=== PATIENT | female | born 1960 | race Caucasian/White ===

== ENCOUNTER 2017-03-11 22:25 | Inpatient (IN) | payer OTHER ==
[~2017-03-11] VITALS: Ht 167.6 cm; Wt 89.0 kg
[2017-03-11] MEDS ORDERED: MAGNESIUM SULFATE 1GM / D5W 1 GM BAG IV STA (22:37)
[2017-03-11] MEDS ORDERED: METHYLPREDNISOLONE 125 MG VIAL IV STA (22:37)
[2017-03-11] MEDS ORDERED: ALBUT/IPRATROP 3MG/0.5MG NEB 3 ML VIAL INH ONE (22:45)
--- NOTE | 2017-03-11 22:50 | EMERGENCY ROOM VISIT NOTE ---
History Report prepared by Yosef: Redd Medina Under the Supervision of: Dr. Madan Pickens M.D. First contact with patient: 22:28 Chief Complaint: SHORTNESS OF BREATH Stated Complaint: SOB, CHILLS, TREMORS History of Present Illness The patient is a 57 year old female who presents to the Emergency Room with complaints of constant shortness of breath beginning at 2030 today. She also complains of pain with urination but denies any coughing. She has a history of asthma and COPD and was diagnosed with a UTI by her PCP today. Source of History: patient Onset: 2029 Position: chest Quality: other (shortness of breath) Timing: constant Associated Symptoms: + urinary symptoms, No cough Review of Systems See HPI for pertinent positives & negatives. A total of 10 systems reviewed and were otherwise negative. Past Medical & Surgical Medical Problems: (1) Asthma (2) COPD (chronic obstructive pulmonary disease) (3) Sepsis (4) UTI (urinary tract infection) Family History No pertinent family history stated. Social History Marital Status: Occupation Status: disabled Current/Historical Medications Scheduled Albuterol Hfa (Ventolin Hfa), 2-4 PUFFS INH Q6H Albuterol Sulf (Proventil 0.083% 2.5MG/3ML), 2.5 MG INH QID Fluticasone Furoate-Vilanterol (Breo Ellipta 200-25 Mcg/INH), 1 PUFF INH UD Lisinopril (Zestril), 20 MG PO DAILY Metoprolol Succ (Toprol Xl) (Toprol-Xl), 25 MG PO DAILY Nitrofurantoin Monohyd Macrocr (Macrobid), 100 MG PO BID Ranitidine (Zantac), 150 MG PO BID Roflumilast (Daliresp), 1 TAB PO DAILY Sertraline (Zoloft), 100 MG PO DAILY Umeclidinium [place] (Incruse Ellipta), 1 PUFF INH UD Allergies Coded Allergies: Levofloxacin (Unverified Allergy, Severe, HIVES, 03/11/17) Sulfamethoxazole w/Trimethoprim (Unverified Allergy, Severe, HIVES, ) Physical Exam Vital Signs Date Time Temp Pulse Resp B/P (MAP) Pulse Ox O2 Delivery O2 Flow Rate FiO2 03/12/17 01:05 37.6 133 22 127/81 93 Nasal Cannula 4.0 03/12/17 00:53 161 18 132/64 91 Nasal Cannula 4.0 03/11/17 23:51 128 18 141/94 95 Nebulizer 03/11/17 23:07 132 28 93 Nasal Cannula 3.5 03/11/17 23:05 127 03/11/17 22:39 92 Nasal Cannula 4.0 03/11/17 22:38 86 Room Air 03/11/17 22:38 37.3 121 30 181/119 86 Room Air 03/11/17 22:38 86 Room Air Physical Exam GENERAL: Patient is a healthy-appearing well-nourished female, in distress HEAD: Normocephalic atraumatic EYES: Ocular movements intact pupils equal and react to light OROPHARYNX mucous membranes are moist no exudates present no erythema or edema present NECK: Supple no nuchal rigidity CHEST: Good equal expansion LUNGS: Wheezing throughout all lung carranza CARDIAC: Normal S1 and S2 ABDOMEN: Soft nontender no guarding BACK: No CVA tenderness EXTREMITIES: No pain upon palpation normal muscle strength in all groups no clubbing cyanosis or edema NEURO: Patient is following commands and answering questions appropriately. Alert and oriented x3 Cranial Nerves 2-12 grossly intact Medical Decision & Procedures ER Provider Diagnostic Interpretation: Radiology results as stated below per my review and radiologist interpretation: CHEST ONE VIEW PORTABLE FINDINGS: Cardiomediastinal and hilar silhouettes are within normal limits. Interstitial coarsening of the lung bases suggest chronic changes or atelectasis. There is no pneumothorax, pleural effusion, focal airspace consolidation or overt pulmonary edema. Bones of the chest appear grossly intact. IMPRESSION: Interstitial opacities of the lung bases suggest chronic changes or atelectasis. No acute cardiopulmonary process identified. The above report was generated using voice recognition software. It may contain grammatical, syntax or spelling errors. Electronically signed by: Brayan Gasca M.D. 03/11/2017 11:07 PM Laboratory Results Test 03/11/17 22:57 03/11/17 23:00 03/11/17 23:47 Urine Color YELLOW Urine Appearance CLEAR (CLEAR) Urine pH 5.0 (4.5-7.5) Urine Specific [place] 1.013 (1.000-1.030) Urine Protein NEG (NEG) Urine Glucose (UA) NEG (NEG) Urine Ketones NEG (NEG) Urine Occult Blood NEG (NEG) Urine Nitrite NEG (NEG) Urine Bilirubin NEG (NEG) Urine Urobilinogen NEG (NEG) Urine Leukocyte Esterase NEG (NEG) Prothrombin Time 10.0 SECONDS (9.0-12.0) Prothromb Time International Ratio 0.9 (0.9-1.1) Activated Partial Thromboplast Time 26.7 SECONDS (21.0-31.0) Partial Thromboplastin Ratio 1.0 Magnesium Level 1.8 mg/dl (1.8-2.4) Total Bilirubin 0.3 mg/dl (0.2-1) Aspartate Amino Transf (AST/SGOT) 18 U/L (15-37) Alanine Aminotransferase (ALT/SGPT) 35 U/L (12-78) Alkaline Phosphatase 99 U/L (45-117) Total Creatine Kinase 62 U/L (26-192) Creatine Kinase MB 1.3 ng/ml (0.5-3.6) Creatine Kinase MB Ratio 2.1 (0-3.0) Troponin I < 0.015 ng/ml (0-0.045) Total Protein 7.3 gm/dl (6.4-8.2) Albumin 3.6 gm/dl (3.4-5.0) Globulin 3.7 gm/dl (2.5-4.0) Albumin/Globulin Ratio 1.0 (0.9-2) Thyroid Stimulating Hormone (TSH) 0.716 uIu/ml (0.300-4.500) Influenza Type A (RT-PCR) Neg for Influ A (NEG) Influenza Type A Antigen Neg for Influ A (NEG) Influenza Type B Antigen Neg for Influ B (NEG) Influenza Type B (RT-PCR) Neg for Influ B (NEG) Labs reviewed by ED physician. Medications Administered Medications (Trade) Dose Ordered Sig/Pierce Route Start Time Stop Time Status Last Admin Dose Admin Methylprednisolone Sodium Succinate (Solu-Medrol IV) 125 mg NOW STAT IV 03/11/17 22:37 03/11/17 22:39 DC 03/11/17 23:03 125 MG Albuterol/ Ipratropium (Duoneb) 12 ml ONE ONCE INH 03/11/17 22:45 03/11/17 22:46 DC 03/11/17 23:07 12 ML Magnesium Sulfate (Magnesium Sulfate) 1 gm NOW STAT IV 03/11/17 22:37 03/11/17 22:39 DC 03/11/17 23:03 1 GM Piperacillin Sod/ Tazobactam Sod (Zosyn Iv) 4.5 gm NOW STAT IV 03/11/17 23:20 03/11/17 23:22 DC 03/12/17 00:25 4.5 GM Doxycycline Hyclate 100 mg/ Dextrose 110 ml @ 50 mls/hr NOW STAT IV 03/11/17 23:20 03/12/17 01:34 DC 03/12/17 00:50 50 MLS/HR Acetaminophen (Tylenol Tab) 1,000 mg NOW STAT PO 03/12/17 00:28 03/12/17 00:29 DC 03/12/17 00:34 1,000 MG Sodium Chloride 1,000 ml @ 999 mls/hr Q1H1M STAT IV 03/12/17 00:31 03/12/17 01:34 DC 03/12/17 01:04 999 MLS/HR Metoprolol Succinate (Toprol Xl Tab) 25 mg ONE STAT PO 03/12/17 00:53 03/12/17 00:54 DC 03/12/17 01:03 25 MG ECG Indication: SOB/dyspnea Rate (beats per minute): 132 Rhythm: sinus tachycardia Findings: no acute ischemic change, no ectopy ED Course 2229: Past medical records reviewed. The patient was evaluated in room C9. A complete history and physical examination was performed. 2237: Magnesium Sulfate 1gm IV, Solu-Medrol IV 125mg IV 2245: Duoneb 12ml INH 2320: Zosyn IV 4.5gm IV 0028: Acetaminophen 1000mg PO 0006: Upon reexamination the patient is stable. I discussed results and treatment plan with the patient. She verbalizes agreement and understanding. I spoke with Dr. Stern from the [facility]. The patient will be evaluated for further management. Medical Decision Differential diagnosis: Etiologies such as infections, reactive airway disease, pneumonia, pneumothorax , COPD, CHF, cardiac ischemia, pulmonary embolism, musculoskeletal, gastrointestinal, as well as others were entertained. This is a 57-year-old female who presents to the emergency department complaining of hypoxia. The patient has a history of COPD. She has a large elevation in her white blood count cell count. She was started on Solu-Medrol emergency department and started on antibiotics. Because the patient still requiring oxygen I did discuss the case with the hospitalist service who agreed to admit the patient. Patient was in agreement with the treatment plan. Medication Reconcilliation Current Medication List: was personally reviewed by me Blood Pressure Screening Patient's blood pressure: Elevated blood pressure Blood pressure disposition: Referred to PCP Consults Time Called: 2229 Consulting Phys[facility] Returned Call: [phone] I discussed the patient's case with Dr. Stern, he has agreed to evaluate the patient for further management and care. Impression Primary Impression: Hypoxia Additional Impression: COPD exacerbation Scribe Attestation The scribe's documentation has been prepared under my direction and personally reviewed by me in its entirety. I confirm that the note above accurately reflects all work, treatment, procedures, and medical decision making performed by me. Departure Information Dispostion Being Evaluated By Hospitalist Referrals No Doctor, Assigned (PCP) Patient Instructions My [facility] Problem Qualifiers
[2017-03-11] MEDS ORDERED: ALBINS/ INH (23:06)
[2017-03-11] MEDS ORDERED: METO25TA3 PO (23:06)
[2017-03-11] MEDS ORDERED: ZNTT/150 PO (23:06)
[2017-03-11] MEDS ORDERED: SERT-234 PO (23:06)
[2017-03-11] MEDS ORDERED: ROFL1TAB5 PO (23:06)
[2017-03-11] MEDS ORDERED: VNTHFA/IN INH (23:06)
[2017-03-11] MEDS ORDERED: FLUT1INH7 INH (23:06)
[2017-03-11] MEDS ORDERED: LISI-725 PO (23:06)
[2017-03-11] MEDS ORDERED: NITR-5 PO (23:06)
[2017-03-11] MEDS ORDERED: UMEC1INH INH (23:06)
[2017-03-11 23:07] VITALS: PULSE 132; O2SAT 93
--- NOTE | 2017-03-11 23:08 | DIAGNOSTIC IMAGING REPORT ---
CHEST ONE VIEW PORTABLE HISTORY: 57 years-old Female Pt c/o SOB acute shortness of breath COMPARISON: None available TECHNIQUE: Portable upright AP view of the chest FINDINGS: Cardiomediastinal and hilar silhouettes are within normal limits. Interstitial coarsening of the lung bases suggest chronic changes or atelectasis. There is no pneumothorax, pleural effusion, focal airspace consolidation or overt pulmonary edema. Bones of the chest appear grossly intact. IMPRESSION: Interstitial opacities of the lung bases suggest chronic changes or atelectasis. No acute cardiopulmonary process identified. The above report was generated using voice recognition software. It may contain grammatical, syntax or spelling errors. Electronically signed by: Brayan Gasca M.D. 03/11/2017 11:07 PM Dictated Date/Time: 03/11/2017 11:06 PM
[2017-03-11 23:14] LABS: BASO % 0.1 %; BASO ABS # 0.02 K/uL (0-0.2); COMPLETE YES; EOS % 0.7 %; HEMATOCRIT 42.9 % (37-47); IG% 0.4 %; LYMPH % 6.8 %; LYMPH ABS # 1.21 K/uL (1.2-3.4); MEAN CELL VOLUME 88.3 fL (80-100); MEAN CORPUSCULAR HEMOGLOBIN 29.2 pg (25-34); MEAN CORPUSCULAR HGB CONC 33.1 g/dl (32-36); MONO % 6.5 %; NEUT % 85.5 %; PLATELET COUNT 372 K/uL (130-400); RED BLOOD COUNT 4.86 M/uL (4.2-5.4); WHITE BLOOD COUNT 17.81 K/uL (4.8-10.8)
[2017-03-11 23:16] LABS: URINE APPEARANCE CLEAR (CLEAR); URINE BILIRUBIN NEG (NEG); URINE COLOR YELLOW; URINE NITRITE NEG (NEG); URINE SPECIFIC GRAVITY 1.013 (1.000-1.030); UROBILINOGEN NEG (NEG)
[2017-03-11] MEDS ORDERED: DOXYCYCLINE IV 100 MG in DEXTROSE 5% 100ML 100 ML IV STA (23:20)
[2017-03-11] MEDS ORDERED: PIPERACILLIN/TAZOBACTAM 4.5 GM/100ML D5W IV STA (23:20)
[2017-03-11 23:36] LABS: MANUAL MICROSCOPIC REQUIRED? NO; REVIEW REQ? NO
[2017-03-11 23:39] LABS: ALT/SGPT 35 U/L (12-78); BLOOD UREA NITROGEN 16 mg/dl (7-18); BUN/CREATININE RATIO 17.2 (10-20); CARBON DIOXIDE 26 mmol/L (21-32); CHLORIDE 108 mmol/L (98-107); CREATININE 0.93 mg/dl (0.60-1.20); GLUCOSE 131 mg/dl (70-99); POTASSIUM 4.2 mmol/L (3.5-5.1); SODIUM 140 mmol/L (136-145)
[2017-03-11 23:44] LABS: ALKALINE PHOSPHATASE 99 U/L (45-117); AST/SGOT 18 U/L (15-37); CKMB/CK RATIO 2.1 (0-3.0)
[2017-03-12] VITALS (13 sets, daily range): BP systolic 98–130; BP diastolic 63–83; PULSE 79–100; TEMP 36.4–36.8; O2SAT 91–98; Ht 167.6 cm; Wt 89.0 kg
[2017-03-12] MEDS ORDERED: ACETAMINOPHEN 500 MG TAB PO STA (00:28)
[2017-03-12] MEDS ORDERED: SODIUM CHLORIDE 0.9% 1000ML 1,000 ML IV STA (00:31)
[2017-03-12 00:53] LABS: MAGNESIUM 1.8 mg/dl (1.8-2.4); THYROID STIMULATING HORMONE 0.716 uIu/ml (0.300-4.500)
[2017-03-12] MEDS ORDERED: METOPROLOL SUCC 25MG EXT REL TAB PO STA (00:53)
[2017-03-12 01:13] LABS: INFLUENZA A PCR Neg for Influ A (NEG); INFLUENZA B PCR Neg for Influ B (NEG)
[2017-03-12 01:41] LABS: ARTERIAL BLD GAS O2 SATURATION 96.5 % (90-95); ARTERIAL BLOOD GAS BASE EXCESS -3.2 mEq/L (-9-1.8); ARTERIAL BLOOD GAS HCO3 21 mmol/L (19-24); ARTERIAL BLOOD GAS PO2 89 mm/Hg (80-95); ARTERIAL BLOOD GAS pH 7.38 (7.35-7.45)
[2017-03-12 01:49] LABS: ALLEN TEST POS (POS)
[2017-03-12 01:54] LABS: O2 ADMINISTRATION 4 L
[2017-03-12] MEDS ORDERED: NITROGLYCERIN 0.4 MG SL PER TAB CHARGE SL PRN (02:00)
[2017-03-12] MEDS ORDERED: LEVALBUTEROL/IPRATROPIUM NEB INH PRN (02:00)
[2017-03-12] MEDS ORDERED: SODIUM CHLORIDE 0.9% 1000ML 1,000 ML IV ONE ×2 (02:15→02:45)
[2017-03-12] MEDS ORDERED: IPRATROPIUM BROMIDE NEB SOLN 0.02% 2.5 ML VIAL INH PRN (02:30)
[2017-03-12] MEDS ORDERED: LEVALBUTEROL 1.25MG/0.5ML NEB INH PRN (02:30)
[2017-03-12] MEDS ORDERED: LEVALBUTEROL/IPRATROPIUM NEB INH SCH (03:00)
[2017-03-12] MEDS: INSULIN GLARGINE SOLOSTAR 100 UNITS/ML 3 ML PEN SC ONE ×2 (03:38→03:48)
[2017-03-12 03:50] LABS: INR 0.9 (0.9-1.1)
--- NOTE | 2017-03-12 04:29 | Progress Note ---
Progress Note Post Crystalloid Evaluation Date: Mar 12, 2017 Time: 02:00 Subjective Dry cough Some shortness of breath Physical Exam Vital Signs: Vital Signs Date Time Temp Pulse Resp B/P (MAP) Pulse Ox O2 Delivery O2 Flow Rate FiO2 03/12/17 04:00 95 Nasal Cannula 2.0 03/12/17 02:45 36.8 98 18 109/65 Lungs: + decreased breath sounds Heart: + tachycardia Peripheral Pulse: Normal Skin: [place] Assessment & Plan Presence of: Severe Sepsis Severe sepsis secondary to chronic obstructive pulmonary disease exacerbation/complicated bronchitis SIRS plus hypoxemic respiratory failure plus lactic acidosis cultures, IV Doxycycline follow lactic acid, IVF
--- NOTE | 2017-03-12 05:54 | HISTORY & PHYSICAL EXAMINATION ---
DATE OF ADMISSION: 03/12/2017 PRIMARY CARE DOCTOR: Dr. Lira. CHIEF COMPLAINT: Cough, shortness of breath. HISTORY OF PRESENT ILLNESS: History obtained from patient and ER records. Medical history significant for COPD, past tobacco abuse, hypertension, mood disorder. Yesterday, patient noted to have bladder discomfort. Seen at PCP's office. Prescribed Macrodantin for possible UTI. Symptoms improved with a few doses. Patient also noted to have dry cough sx yesterday morning. Px woke up last night with worsening cough, shortness of breath, fever, chills. Patient noted to be in respiratory distress at the Emergency Room. Received Solu-Medrol, nebs, Doxycycline and Zosyn for COPD exacerbation. MEDICAL AND SURGICAL HISTORY: As above. HOME MEDICATIONS: Include albuterol, Ellipta, lisinopril, metoprolol, Macrobid, Daliresp, Zantac, Zoloft. ALLERGIES: BACTRIM, LEVOFLOXACIN. FAMILY HISTORY: Hypertension. PERSONAL AND SOCIAL HISTORY: Past tobacco abuse. No chronic intake of alcoholic beverages. On disability. REVIEW OF SYSTEMS: As per HPI, all other ROS negative. PHYSICAL EXAMINATION: VITAL SIGNS: Blood pressure was noted to be 181/190, later 140/94, pulse rate 121, RR 30, later 18, temperature noted to be 37.6, sats 86% on room air. GENERAL: Noted to be obese, comfortable, no respiratory distress. SKIN: Normal color, warm. HEENT: Pale palpebral conjunctivae. No ptosis. Dry buccal mucosa. NECK: Supple. No tenderness. LUNGS: Decreased breath sounds. No tenderness. CV: Tachycardic. palpable LE pulses . ABDOMEN: Some distention, nontender. EXTREMITIES: No edema, no tenderness. No gross deformities. NEUROLOGIC: Coherent. No gross focality. LABORATORY DATA: Hemoglobin was noted to be 14.2, WBC 16 platelets 372. Sodium 140, potassium 4.2, chloride 108, CO2 26, BUN 16, creatinine 0.9, glucose 131. ABG pH 7.38, pCO2 37, pO2 89 on 4 liters. Chest x-ray showed interstitial opacities, chronic changes versus atelectasis. Lactic acid was noted to be 3.2. Flu swab negative. ASSESSMENT: 1. Severe sepsis secondary to chronic obstructive pulmonary disease exacerbation/complicated bronchitis SIRS plus hypoxemic respiratory failure plus lactic acidosis 2. past tobacco abuse 3. hypertension, slightly elevated. 4. Mood disorder, stable. 5. Hyperglycemia, rule out DM2. PLAN: Supplemental O2 cultures, follow lactic acid IV fluids. Doxycycline, nebs, steroids. Pulmonology consult if no improvement with initial intervention RE respiratory failure Facilitate home BP meds. May need dose titration. Check hemoglobin A1c. DVT prophylaxis, Lovenox subQ. Full code. MTDD
[2017-03-12] MEDS: SODIUM CHLORIDE 0.45% 1000ML 1,000 ML IV SCH ×2 (06:17→07:50)
[2017-03-12 06:43] LABS: BUN/CREATININE RATIO 14.5 (10-20); CALCIUM 8.3 mg/dl (8.5-10.1); CREATININE 1.05 mg/dl (0.60-1.20); POTASSIUM 4.5 mmol/L (3.5-5.1)
[2017-03-12] MEDS: IPRATROPIUM BROMIDE NEB SOLN 0.02% 2.5 ML VIAL INH SCH ×3 (07:25→19:24)
[2017-03-12] MEDS: LEVALBUTEROL 1.25MG/0.5ML NEB INH SCH ×3 (07:25→19:24)
[2017-03-12 07:36] LABS: HEMATOCRIT 38.7 % (37-47); MEAN CORPUSCULAR HEMOGLOBIN 29.2 pg (25-34); MEAN CORPUSCULAR HGB CONC 32.8 g/dl (32-36); MEAN PLATELET VOLUME 9.5 fL (7.4-10.4); PLATELET COUNT 381 K/uL (130-400); RED BLOOD COUNT 4.35 M/uL (4.2-5.4); WHITE BLOOD COUNT 24.51 K/uL (4.8-10.8)
[2017-03-12] MEDS: ENOXAPARIN 40 MG/0.4 ML SYR SC SCH (07:49)
[2017-03-12] MEDS: DOXYCYCLINE HYCLATE 100 MG CAP PO SCH ×2 (07:49→21:07)
[2017-03-12] MEDS: RANITIDINE HCL 150 MG TAB PO SCH ×2 (07:50→21:07)
[2017-03-12] MEDS: LISINOPRIL 20 MG TAB PO SCH (07:50)
[2017-03-12] MEDS: ROFLUMILAST 500 MCG TAB PO SCH (07:50)
[2017-03-12] MEDS: SERTRALINE HCL 100 MG TAB PO SCH (07:50)
[2017-03-12 08:06] LABS: BASO % 0.1 %; BASO ABS # 0.03 K/uL (0-0.2); COMPLETE YES; IG% 0.6 %; LYMPH % 2.8 %; LYMPH ABS # 0.69 K/uL (1.2-3.4); MONO % 1.6 %; NEUT % 94.9 %
--- NOTE | 2017-03-12 10:12 | Progress Note ---
Internal Med Progress Note Date of Service: Mar 12, 2017. Provider Documentation: SUBJECTIVE: Seen and examined at bedside States having dry cough Denies chest pain, SOB, dizziness, nausea, abd pain, diarrhea Feels better No other complaints OBJECTIVE: Vital Signs-as noted below Physical Exam: General Appearance:Moderately built and nourished, no apparent distress Head: normocephalic, Atraumatic Eyes: normal inspection, EOMI, PERRL Neck: supple, Trachea midline Respiratory/Chest: decreased breath sounds, CTA Cardiovascular: S1, S2, No murmur Abdomen/GI:Soft, Non tender, Bowel sounds present Extremities/Musculoskelatal:normal inspection, no edema Neurologic/Psych:AAOX3, grossly no focal neurological deficits Skin: normal color, warm Lab data as noted below. ASSESSMENT & PLAN: Severe sepsis: Acute on Chronic respiratory failure with Hypoxia COPD exacerbation/Complicated bronchitis CXR: No signs of consolidation UA: normal (Already took Macrobid for UTI like symptoms prior to admission) Blood cultures pending Oxygen support to maintain Sats 88-92% Continue Abx:Ceftriaxone, Doxy Duonebs, home inhalers Continue prednisone IV fluids Monitor lactate levels Needs sleep study as outpatient for possible underlying sleep apnea Influenza Negative Will consider Pulmonary consult if clinically deteriorates Currently feels better H/O Palpitations Tachy arrhythmia on monitor currently in sinus, asymptomatic Will consult Cardiology for Further management Continue Metoprolol Hypertension: On lisinopril, Metoprolol Monitor Mood disorder: stable Continue home meds Hyperglycemia: Check A1C DVT px: Lovenox subQ. Code Status: Full code Disposition: Monitor in tele Vital Signs: Date Time Temp Pulse Resp B/P (MAP) Pulse Ox O2 Delivery O2 Flow Rate FiO2 03/12/17 07:39 36.8 89 19 98/63 (75) 97 Room Air 4.0 03/12/17 07:25 92 18 98 Nasal Cannula 5.0 03/12/17 04:34 36.5 79 19 109/67 (81) 95 Nasal Cannula 4.0 03/12/17 04:00 95 Nasal Cannula 2.0 03/12/17 02:45 36.8 98 18 109/65 95 Nasal Cannula 3.0 03/12/17 01:56 37.0 121 20 111/70 94 03/12/17 01:05 37.6 133 22 127/81 93 Nasal Cannula 4.0 03/12/17 00:53 161 18 132/64 91 Nasal Cannula 4.0 03/11/17 23:51 128 18 141/94 95 Nebulizer 03/11/17 23:07 132 28 93 Nasal Cannula 3.5 03/11/17 23:05 127 03/11/17 22:39 92 Nasal Cannula 4.0 03/11/17 22:38 86 Room Air 03/11/17 22:38 37.3 121 30 181/119 86 Room Air 03/11/17 22:38 86 Room Air Lab Results: Results Past 24 Hours Test 03/11/17 22:57 03/11/17 23:00 03/11/17 23:47 03/12/17 01:27 Range/Units Urine Color YELLOW Urine Appearance CLEAR CLEAR Urine pH 5.0 4.5-7.5 Urine Specific [place] 1.013 1.000-1.030 Urine Protein NEG NEG Urine Glucose (UA) NEG NEG Urine Ketones NEG NEG Urine Occult Blood NEG NEG Urine Nitrite NEG NEG Urine Bilirubin NEG NEG Urine Urobilinogen NEG NEG Urine Leukocyte Esterase NEG NEG White Blood Count 17.81 4.8-10.8 K/uL Red Blood Count 4.86 4.2-5.4 M/uL Hemoglobin 14.2 12.0-16.0 g/dL Hematocrit 42.9 37-47 % Mean Corpuscular Volume 88.3 80-100 fL Mean Corpuscular Hemoglobin 29.2 25-34 pg Mean Corpuscular Hemoglobin Concent 33.1 32-36 g/dl Platelet Count 372 130-400 K/uL Mean Platelet Volume 9.0 7.4-10.4 fL Neutrophils (%) (Auto) 85.5 % Lymphocytes (%) (Auto) 6.8 % Monocytes (%) (Auto) 6.5 % Eosinophils (%) (Auto) 0.7 % Basophils (%) (Auto) 0.1 % Neutrophils # (Auto) 15.22 1.4-6.5 K/uL Lymphocytes # (Auto) 1.21 1.2-3.4 K/uL Monocytes # (Auto) 1.16 0.11-0.59 K/uL Eosinophils # (Auto) 0.13 0-0.5 K/uL Basophils # (Auto) 0.02 0-0.2 K/uL RDW Standard Deviation 40.2 36.4-46.3 fL RDW Coefficient of Variation 12.5 11.5-14.5 % Immature Granulocyte % (Auto) 0.4 % Immature Granulocyte # (Auto) 0.07 0.00-0.02 K/uL Prothrombin Time 10.0 9.0-12.0 SECONDS Prothromb Time International Ratio 0.9 0.9-1.1 Activated Partial Thromboplast Time 26.7 21.0-31.0 SECONDS Partial Thromboplastin Ratio 1.0 Sodium Level 140 136-145 mmol/L Potassium Level 4.2 3.5-5.1 mmol/L Chloride Level 108 98-107 mmol/L Carbon Dioxide Level 26 21-32 mmol/L Anion Gap 7.0 3-11 mmol/L Blood Urea Nitrogen 16 7-18 mg/dl Creatinine 0.93 0.60-1.20 mg/dl Est Creatinine Clear Calc Drug Dose 76.6 ml/min Estimated GFR () 80.2 Estimated GFR (Non- 69.2 BUN/Creatinine Ratio 17.2 10-20 Random Glucose 131 70-99 mg/dl Calcium Level 9.0 8.5-10.1 mg/dl Magnesium Level 1.8 1.8-2.4 mg/dl Total Bilirubin 0.3 0.2-1 mg/dl Aspartate Amino Transf (AST/SGOT) 18 15-37 U/L Alanine Aminotransferase (ALT/SGPT) 35 12-78 U/L Alkaline Phosphatase 99 45-117 U/L Total Creatine Kinase 62 26-192 U/L Creatine Kinase MB 1.3 0.5-3.6 ng/ml Creatine Kinase MB Ratio 2.1 0-3.0 Troponin I < 0.015 0-0.045 ng/ml Total Protein 7.3 6.4-8.2 gm/dl Albumin 3.6 3.4-5.0 gm/dl Globulin 3.7 2.5-4.0 gm/dl Albumin/Globulin Ratio 1.0 0.9-2 Thyroid Stimulating Hormone (TSH) 0.716 0.300-4.500 uIu/ml Influenza Type A (RT-PCR) Neg for Influ A NEG Influenza Type A Antigen Neg for Influ A NEG Influenza Type B Antigen Neg for Influ B NEG Influenza Type B (RT-PCR) Neg for Influ B NEG Arterial Blood pH 7.38 7.35-7.45 Arterial Blood Partial Pressure CO2 37 35-46 mmHg Arterial Blood Partial Pressure O2 89 80-95 mm/Hg Arterial Blood HCO3 21 19-24 mmol/L Arterial Blood Oxygen Saturation 96.5 90-95 % Arterial Blood Base Excess -3.2 -9-1.8 mEq/L Arterial Blood Gas Delivery 4 L Bryan Test POS POS Lactic Acid Level 3.2 0.4-2.0 mmol/L Test 03/12/17 05:56 03/12/17 06:03 03/12/17 09:21 Range/Units White Blood Count 24.51 4.8-10.8 K/uL Red Blood Count 4.35 4.2-5.4 M/uL Hemoglobin 12.7 12.0-16.0 g/dL Hematocrit 38.7 37-47 % Mean Corpuscular Volume 89.0 80-100 fL Mean Corpuscular Hemoglobin 29.2 25-34 pg Mean Corpuscular Hemoglobin Concent 32.8 32-36 g/dl Platelet Count 381 130-400 K/uL Mean Platelet Volume 9.5 7.4-10.4 fL Neutrophils (%) (Auto) 94.9 % Lymphocytes (%) (Auto) 2.8 % Monocytes (%) (Auto) 1.6 % Eosinophils (%) (Auto) 0.0 % Basophils (%) (Auto) 0.1 % Neutrophils # (Auto) 23.23 1.4-6.5 K/uL Lymphocytes # (Auto) 0.69 1.2-3.4 K/uL Monocytes # (Auto) 0.40 0.11-0.59 K/uL Eosinophils # (Auto) 0.01 0-0.5 K/uL Basophils # (Auto) 0.03 0-0.2 K/uL RDW Standard Deviation 41.2 36.4-46.3 fL RDW Coefficient of Variation 12.8 11.5-14.5 % Immature Granulocyte % (Auto) 0.6 % Immature Granulocyte # (Auto) 0.15 0.00-0.02 K/uL Sodium Level 142 136-145 mmol/L Potassium Level 4.5 3.5-5.1 mmol/L Chloride Level 111 98-107 mmol/L Carbon Dioxide Level 25 21-32 mmol/L Anion Gap 6.0 3-11 mmol/L Blood Urea Nitrogen 15 7-18 mg/dl Creatinine 1.05 0.60-1.20 mg/dl Est Creatinine Clear Calc Drug Dose 68.2 ml/min Estimated GFR () 69.2 Estimated GFR (Non- 59.7 BUN/Creatinine Ratio 14.5 10-20 Random Glucose 199 70-99 mg/dl Lactic Acid Level 3.1 0.4-2.0 mmol/L Calcium Level 8.3 8.5-10.1 mg/dl Bedside Glucose 155 70-90 mg/dl Microbiology Results 03/12/17 Blood Culture, Received Pending 03/12/17 Blood Culture, Received Pending
[2017-03-12] MEDS: CEFTRIAXONE SOD INJ 1 GM in DEXTROSE 5% ADD-VANTAGE 50ML 50 ML IV SCH (10:58)
--- NOTE | 2017-03-12 11:24 | Cardiology Consultation ---
Cardiology Consultation Date of Consultation: Mar 12, 2017 Requesting Physician: Dr. Dasilva Attending House Wirer: Dr. Avery (Analisa Hernandez PA-C) History of Present Illness Patient is a 57 year old female with a past medical history significant for COPD , prior tobacco abuse, hypertension, depression, and nonspecific palpitations. She follows with outside PCP (non [facility]) and limited records available. She denies history of coronary artery disease, CHF, valvular heart disease. She recalls having a heart monitor approx 12 years ago, (not available for review) for complaints of non specific palpitations. She is unsure of the monitor results. She was started on metoprolol at that time and has been on medication since. She states her palpitations have been well controlled and she denies recent symptoms of palpitations or tachypalpitations. She recalls having an echocardiogram at [facility] last year when she had LE edema. She recalls having percentage of 51%? (not available for review). No recent chest pain. She notes ongoing/chronic dyspnea. Recently symptoms worsened. She initially presented to [facility] ER with complaints of SOB, cough and respiratory distress. Diagnosed with sepsis secondary to likely COPD exacerbation and possible UTI (treated as outpatient). She received steroids, nebulizers, and antibiotics. Symptoms have improved since admission. This AM, patient was resting in bed and had 2 non sustained episodes of tachyarrhythmia. Further evaluation of telemetry, HR about 150 and regular, likely SVT. Runs lasted approx 23 beats and 16 beats respectively. She was asymptomatic at the time. No chest pain, worsening SOB, symptoms of palpitations or dizziness. No orthopnea, PND or edema. She offers no complaints at this time. (Analisa Hernandez, SHELLY) Past Medical/Surgical History Problem List: Medical Problems: (1) Asthma (2) COPD (chronic obstructive pulmonary disease) (3) Sepsis (4) UTI (urinary tract infection) 4. Hypertension 5. Depression 6. Palpitations 7. Prior tobacco abuse. (Analisa Hernandez PA-C) Social History Smoking Status: Former Smoker Marital Status: Occupation: disabled (Analisa Hernandez PA-C) Review Of Systems General: The patient denies weight change, night sweats, fever, chills. Head: The patient denies headache and prior head trauma. Cardiovascular: The patient denies chest pain or chest discomfort, dyspnea on exertion, palpitations, PND, orthopnea, edema, spontaneous shortness of breath, syncope and near syncope. Pulmonary: +cough and SOB The patient denies, wheeze, pleurisy, hemoptysis, sputum, and excessive snoring. Gastrointestinal: The patient denies nausea, vomiting, diarrhea, constipation, bloating, hematemesis, hematochezia, and abdominal pain. Skin: The patient denies diaphoresis and rash. Musculoskeletal: The patient denies joint pain, joint swelling, myalgia, back pain, neck pain and prior injuries. Neurological: The patient denies prior stroke and seizures (Analisa Hernandez, SHELLY) Allergies Coded Allergies: Levofloxacin (Unverified Allergy, Severe, HIVES, 03/11/17) Sulfamethoxazole w/Trimethoprim (Unverified Allergy, Severe, HIVES, ) Medications Reported Home Medications Medications Dose Route/Sig Max Daily Dose Days Date Category Toprol-Xl (Metoprolol Succinate) 25 Mg Tabcr 25 Mg PO DAILY 03/11/17 Reported Zestril (Lisinopril) 20 Mg Tab 20 Mg PO DAILY 03/11/17 Reported Zoloft (Sertraline HCl) 100 Mg Tab 100 Mg PO DAILY 03/11/17 Reported Zantac (Ranitidine HCl) 150 Mg Tab 150 Mg PO BID 03/11/17 Reported Daliresp (Roflumilast) 500 Mcg Tab 1 Tab PO DAILY 03/11/17 Reported Macrobid (Nitrofurantoin Macrocrystals) 100 Mg Cap 100 Mg PO BID 03/11/17 Reported Ventolin Hfa (Albuterol) 200 Puffs/80057 Mcg Aers 2-4 Puffs INH Q6H 03/11/17 Reported Proventil 0.083% 2.5MG/3ML (Albuterol Sulf) 2.5 Mg/3 Ml Nebu 2.5 Mg INH QID 03/11/17 Reported Incruse Ellipta (Umeclidinium Harrison) 62.5 Mcg/Inh Inh 1 Puff INH UD 03/11/17 Reported Breo Ellipta 200-25 Mcg/INH (Fluticasone Furoate-Vilanterol) 1 Inh Inh 1 Puff INH UD 03/11/17 Reported (Analisa Hernandez PA-C) Physical Exam Vital Signs (Last 8hrs): Last 8 Hrs Date Time Temp Pulse Resp B/P (MAP) Pulse Ox O2 Delivery O2 Flow Rate FiO2 03/12/17 08:00 Nasal Cannula 3.0 03/12/17 07:39 36.8 89 19 98/63 (75) 97 Room Air 4.0 03/12/17 07:25 92 18 98 Nasal Cannula 5.0 03/12/17 04:34 36.5 79 19 109/67 (81) 95 Nasal Cannula 4.0 03/12/17 04:00 95 Nasal Cannula 2.0 General Appearance: Alert and Oriented x3. NAD. Head: Normocephalic Atraumatic. Eyes: PERRLA, EOMI, conjunctiva and sclera clear Neck: Supple. No carotid bruits noted. No JVD. No HJD. Respiratory: Decreased breath sounds with scattered rhonchi.. Cardiovascular: Reg rate and rhythm. S1 and S2 noted. No murmurs, rubs, gallops. PMI non displace. Abdomen: Normal bowel sounds, soft nontender. no abdominal bruits. Extremities: No edema, no clubbing or cyanosis. distal pulses 2/4 bilaterally. Neuro: No focal deficits. Psychiatric: Normal affect. (Analisa Hernandez PA-C) Data Last 24 Hours Test 03/11/17 22:57 03/11/17 23:00 03/11/17 23:47 03/12/17 01:27 Urine Color YELLOW Urine Appearance CLEAR Urine pH 5.0 Urine Specific [place] 1.013 Urine Protein NEG Urine Glucose (UA) NEG Urine Ketones NEG Urine Occult Blood NEG Urine Nitrite NEG Urine Bilirubin NEG Urine Urobilinogen NEG Urine Leukocyte Esterase NEG White Blood Count 17.81 K/uL Red Blood Count 4.86 M/uL Hemoglobin 14.2 g/dL Hematocrit 42.9 % Mean Corpuscular Volume 88.3 fL Mean Corpuscular Hemoglobin 29.2 pg Mean Corpuscular Hemoglobin Concent 33.1 g/dl Platelet Count 372 K/uL Mean Platelet Volume 9.0 fL Neutrophils (%) (Auto) 85.5 % Lymphocytes (%) (Auto) 6.8 % Monocytes (%) (Auto) 6.5 % Eosinophils (%) (Auto) 0.7 % Basophils (%) (Auto) 0.1 % Neutrophils # (Auto) 15.22 K/uL Lymphocytes # (Auto) 1.21 K/uL Monocytes # (Auto) 1.16 K/uL Eosinophils # (Auto) 0.13 K/uL Basophils # (Auto) 0.02 K/uL RDW Standard Deviation 40.2 fL RDW Coefficient of Variation 12.5 % Immature Granulocyte % (Auto) 0.4 % Immature Granulocyte # (Auto) 0.07 K/uL Prothrombin Time 10.0 SECONDS Prothromb Time International Ratio 0.9 Activated Partial Thromboplast Time 26.7 SECONDS Partial Thromboplastin Ratio 1.0 Sodium Level 140 mmol/L Potassium Level 4.2 mmol/L Chloride Level 108 mmol/L Carbon Dioxide Level 26 mmol/L Anion Gap 7.0 mmol/L Blood Urea Nitrogen 16 mg/dl Creatinine 0.93 mg/dl Est Creatinine Clear Calc Drug Dose 76.6 ml/min Estimated GFR () 80.2 Estimated GFR (Non- 69.2 BUN/Creatinine Ratio 17.2 Random Glucose 131 mg/dl Calcium Level 9.0 mg/dl Magnesium Level 1.8 mg/dl Total Bilirubin 0.3 mg/dl Aspartate Amino Transf (AST/SGOT) 18 U/L Alanine Aminotransferase (ALT/SGPT) 35 U/L Alkaline Phosphatase 99 U/L Total Creatine Kinase 62 U/L Creatine Kinase MB 1.3 ng/ml Creatine Kinase MB Ratio 2.1 Troponin I < 0.015 ng/ml Total Protein 7.3 gm/dl Albumin 3.6 gm/dl Globulin 3.7 gm/dl Albumin/Globulin Ratio 1.0 Thyroid Stimulating Hormone (TSH) 0.716 uIu/ml Influenza Type A (RT-PCR) Neg for Influ A Influenza Type A Antigen Neg for Influ A Influenza Type B Antigen Neg for Influ B Influenza Type B (RT-PCR) Neg for Influ B Arterial Blood pH 7.38 Arterial Blood Partial Pressure CO2 37 mmHg Arterial Blood Partial Pressure O2 89 mm/Hg Arterial Blood HCO3 21 mmol/L Arterial Blood Oxygen Saturation 96.5 % Arterial Blood Base Excess -3.2 mEq/L Arterial Blood Gas Delivery 4 L Bryan Test POS Lactic Acid Level 3.2 mmol/L Test 03/12/17 05:56 03/12/17 06:03 03/12/17 09:21 White Blood Count 24.51 K/uL Red Blood Count 4.35 M/uL Hemoglobin 12.7 g/dL Hematocrit 38.7 % Mean Corpuscular Volume 89.0 fL Mean Corpuscular Hemoglobin 29.2 pg Mean Corpuscular Hemoglobin Concent 32.8 g/dl Platelet Count 381 K/uL Mean Platelet Volume 9.5 fL Neutrophils (%) (Auto) 94.9 % Lymphocytes (%) (Auto) 2.8 % Monocytes (%) (Auto) 1.6 % Eosinophils (%) (Auto) 0.0 % Basophils (%) (Auto) 0.1 % Neutrophils # (Auto) 23.23 K/uL Lymphocytes # (Auto) 0.69 K/uL Monocytes # (Auto) 0.40 K/uL Eosinophils # (Auto) 0.01 K/uL Basophils # (Auto) 0.03 K/uL RDW Standard Deviation 41.2 fL RDW Coefficient of Variation 12.8 % Immature Granulocyte % (Auto) 0.6 % Immature Granulocyte # (Auto) 0.15 K/uL Sodium Level 142 mmol/L Potassium Level 4.5 mmol/L Chloride Level 111 mmol/L Carbon Dioxide Level 25 mmol/L Anion Gap 6.0 mmol/L Blood Urea Nitrogen 15 mg/dl Creatinine 1.05 mg/dl Est Creatinine Clear Calc Drug Dose 68.2 ml/min Estimated GFR () 69.2 Estimated GFR (Non- 59.7 BUN/Creatinine Ratio 14.5 Random Glucose 199 mg/dl Lactic Acid Level 3.1 mmol/L 2.6 mmol/L Calcium Level 8.3 mg/dl Hepatitis C Antibody Screen NEG Bedside Glucose 155 mg/dl Imaging: Chest xray on admission: IMPRESSION: Interstitial opacities of the lung bases suggest chronic changes or atelectasis. No acute cardiopulmonary process identified. EKG: On admission: sinus tachycardia with nonspecific ST/T wave changes. Telemetry reviewed: NSR with occ PVC and PAC, 2 non sustained episodes of likely SVT (23 and 16 beats respectively). (Analisa Hernandez, PARossC) Assessment & Plan 1. Paroxysmal non sustained SVT, 2 episodes this AM, -patient was asymptomatic -lasted 23 beats and 16 beats respectively, converting to NSR spontaneously -has a history of nonspecific palpitations, taking metoprolol for > 10 years for symptoms. Well controlled at home. -recommend potassium > 4 and magnesium > 2 -Likely a result of current therapies for respiratory failure/COPD exacerbation -history of ? low normal LVEF 51% - update 2D echo for completeness and r/o tachycardia induced cardiomyopathy -would continue current dose of metoprolol currently as she is asymptomatic and likely a result of current respiratory therapies. 2. sinus tachycardia on admission - due to respiratory distress -heart rates improved on telemetry currently 2. Acute on chronic respiratory failure -continue treatment per hospitalist. 3. Hypertension - controlled Continue telemetry monitoring during current treatment for COPD. Continue metoprolol 25 mg daily for now Update 2D echo Case discussed with Dr. Avery. Will follow. (Analisa Hernandez PA-C) CARDIOLOGY ATTENDING ADDENDUM: The patient was seen and personally examined. Agree with Analisa Hernandez PA-C's findings and plans as documented above with additions as noted below. Patient feeling well, sitting upright, doing with her family. No recent palpitations, no recurrent episodes of tachycardia noted on telemetry since I had discussed her case with Analisa NG earlier this morning. Examination: Cardiac regular rhythm, no murmurs Extremities, no edema Impression: Tachycardia palpitations, and 2 brief episodes of supraventricular tachycardia on telemetry Admission with acute exacerbation COPD Plan: Continue chronic prior to hospital dose of metoprolol succinate 25 mg daily for now. Will consider increasing metoprolol versus transitioning her to diltiazem. Echocardiogram has been requested and is in process which I will review. (Jimmie Avery,D.O.)
[2017-03-12] MEDS: SODIUM CHLORIDE 0.9% 1000ML 1,000 ML IV SCH (13:54)
[2017-03-12] MEDS ORDERED: PERFLUTREN LIPID MICROSPHERE (DEFINITY) IV ONE (15:36)
--- NOTE | 2017-03-12 16:21 | ECHOCARDIOGRAM REPORT ---
*NOTICE TO RECEIVING LIBERTARIAN AGENCY This information is strictly Confidential and protected under [place] law. [place] law prohibits you from making any further disclosure of this information unless further disclosure is expressly permitted by the written consent of the person to whom it pertains or is authorized by law. A general authorization for the release of medical or other information is not sufficient for this purpose. Hospital accepts no responsibility if the information is made available to any other person, INCLUDING THE PATIENT. Interpretation Summary * Name: QIANA PELAEZ Study Date: 03/12/2017 03:10 PM BP: 110/74 mmHg * Patient Location: C.2T\S\S232\S\1 HR: 97 * : 1960 (M/d/yyyy) Gender: Female Height: 66 in * Age: 57 yrs Ethnicity: CA Weight: 197 lb * Ordering Physician: Analisa Hernandez * Referring Physician: Self, Referred * Performed By: Chani Coley RCS * * Reason For Study: TACHYCARDIA / R/O CARDIOMYOPATHY * BSA: 2.0 m2 * The study was technically adequate. * -- Conclusions -- * There is mild concentric left ventricular hypertrophy. * No regional wall motion abnormalities noted. * The left ventricle is hyperdynamic. * Ejection Fraction = >70 %. * The right ventricle is normal in size and function. * Doppler findings do not suggest pulmonary hypertension. Procedure Details * A complete two-dimensional transthoracic echocardiogram was performed (2D, M-mode, Doppler and color flow Doppler). * The study was technically difficult. * The study was technically difficult, but visualization was adequate with the administration of Definity ultrasound contrast. * A contrast injection of Definity was performed to improve assessment of LV function. * Contrast was injected into an intravenous site in the left arm. * One vial of Definity ultrasound contrast was diluted in normal saline to a total volume of 10 ml. A total of '2' ml of solution was administered during imaging. * Lot # [id number] of Definity utilized for procedure. * Expiration date MAY 04. Left Ventricle * The left ventricle is normal in size. * There is mild concentric left ventricular hypertrophy. * The left ventricle is hyperdynamic. * Ejection Fraction = >70 %. * The left ventricular wall motion is normal. * No regional wall motion abnormalities noted. Right Ventricle * The right ventricle is normal in size and function. * The right ventricular systolic function is normal as assessed by tricuspid annular plane systolic excursion (TAPSE) (normal >1.5 cm). Atria * The left atrial size is normal. * Right atrial size is normal. * There is no evidence of atrial septal defect, but resolution does not allow assessment for a patent foramen ovale. Mitral Valve * The mitral valve is normal. * There is no mitral valve stenosis. * Significant mitral regurgitation is absent. Tricuspid Valve * The tricuspid valve is normal. * There is no tricuspid stenosis. * Significant tricuspid regurgitation is absent. * Doppler findings do not suggest pulmonary hypertension. Aortic Valve * The aortic valve is trileaflet. * Aortic stenosis is absent. * There is no significant aortic regurgitation. Pulmonic Valve * The pulmonary valve is not well seen, but the Doppler examination is normal without significant regurgitation or stenosis. Great Vessels * The aortic root and proximal ascending aorta are normal sized. Pericardium/Pleural * There is no pericardial effusion. Great Vessels * Normal inferior vena cava diameter and respiratory variation suggests normal central venous pressure. Left Ventricular Diastolic Function * Grade I diastolic dysfunction, (abnormal relaxation pattern). MMode 2D Measurements and Calculations IVSd 1.4 cm IVSs 1.6 cm LVIDd 4.8 cm LVIDs 3.7 cm LVPWd 1.1 cm LVPWs 1.4 cm IVS/LVPW 1.3 FS 22.9 % EDV(Teich) 105.1 ml ESV(Teich) 56.9 ml EF(Teich) 45.9 % EDV(cubed) 107.4 ml ESV(cubed) 49.3 ml EF(cubed) 54.1 % % IVS thick 11.9 % % LVPW thick 28.7 % LV mass(C)d 232.3 grams LV mass(C)dI 116.9 grams/m\S\2 LV mass(C)s 207.2 grams LV mass(C)sI 104.3 grams/m\S\2 SV(Teich) 48.2 ml SI(Teich) 24.3 ml/m\S\2 SV(cubed) 58.1 ml SI(cubed) 29.2 ml/m\S\2 Ao root diam 2.5 cm Ao root area 5.0 cm\S\2 LA dimension 3.3 cm LA/Ao 1.3 LVOT diam 2.0 cm LVOT area 3.3 cm\S\2 LVAd ap4 22.7 cm\S\2 LVLd ap4 6.5 cm EDV(MOD-sp4) 66.5 ml EDV(sp4-el) 68.0 ml LVAs ap4 16.5 cm\S\2 LVLs ap4 5.6 cm ESV(MOD-sp4) 39.1 ml ESV(sp4-el) 41.3 ml EF(MOD-sp4) 41.2 % EF(sp4-el) 39.2 % LVAd ap2 25.6 cm\S\2 LVLd ap2 7.4 cm EDV(MOD-sp2) 73.3 ml EDV(sp2-el) 75.2 ml LVAs ap2 16.2 cm\S\2 LVLs ap2 5.8 cm ESV(MOD-sp2) 36.7 ml ESV(sp2-el) 38.6 ml EF(MOD-sp2) 50.0 % EF(sp2-el) 48.6 % LVLd %diff 12.5 % EDV(MOD-bp) 74.7 ml LVLs %diff 2.6 % ESV(MOD-bp) 38.6 ml EF(MOD-bp) 48.3 % SV(MOD-sp4) 27.4 ml SI(MOD-sp4) 13.8 ml/m\S\2 SV(MOD-sp2) 36.6 ml SI(MOD-sp2) 18.4 ml/m\S\2 SV(MOD-bp) 36.0 ml SI(MOD-bp) 18.1 ml/m\S\2 SV(sp4-el) 26.7 ml SI(sp4-el) 13.4 ml/m\S\2 SV(sp2-el) 36.6 ml SI(sp2-el) 18.4 ml/m\S\2 Doppler Measurements and Calculations MV E max queta 116.5 cm/sec MV A max queta 97.6 cm/sec MV E/A 1.2 MV P1/2t max queta 113.9 cm/sec MV P1/2t 52.7 msec MVA(P1/2t) 4.2 cm\S\2 MV dec slope 632.6 cm/sec\S\2 MV dec time 0.17 sec Ao V2 max 151.8 cm/sec Ao max PG 9.2 mmHg Ao max PG (full) 0.17 mmHg PAULETTE(V,A) 3.3 cm\S\2 PAULETTE(V,D) 3.3 cm\S\2 LV V1 max PG 9.1 mmHg LV V1 max 150.4 cm/sec PA V2 max 92.3 cm/sec PA max PG 3.4 mmHg TR max queta 286.4 cm/sec
[2017-03-12] MEDS ORDERED: MAGNESIUM CHLORIDE 64MG DELAYED REL TAB PO ONE (21:00)
[2017-03-13] VITALS (11 sets, daily range): BP systolic 101–142; BP diastolic 62–85; PULSE 69–98; TEMP 36.4–36.9; O2SAT 91–96
[2017-03-13] MEDS: SODIUM CHLORIDE 0.9% 1000ML 1,000 ML IV SCH ×2 (00:24→14:09)
[2017-03-13] MEDS: LEVALBUTEROL 1.25MG/0.5ML NEB INH SCH ×4 (01:57→19:49)
[2017-03-13] MEDS: IPRATROPIUM BROMIDE NEB SOLN 0.02% 2.5 ML VIAL INH SCH ×4 (01:57→19:49)
[2017-03-13 07:16] LABS: BASO % 0.1 %; BASO ABS # 0.03 K/uL (0-0.2); COMPLETE YES; EOS % 0.4 %; HEMATOCRIT 36.7 % (37-47); IG% 0.4 %; LYMPH ABS # 3.65 K/uL (1.2-3.4); MEAN CELL VOLUME 88.6 fL (80-100); MEAN CORPUSCULAR HGB CONC 32.7 g/dl (32-36); MEAN PLATELET VOLUME 9.1 fL (7.4-10.4); NEUT % 77.1 %; PLATELET COUNT 377 K/uL (130-400); RED BLOOD COUNT 4.14 M/uL (4.2-5.4); WHITE BLOOD COUNT 24.28 K/uL (4.8-10.8)
[2017-03-13 07:45] LABS: BUN/CREATININE RATIO 21.9 (10-20); CALCIUM 8.4 mg/dl (8.5-10.1); CREATININE 0.79 mg/dl (0.60-1.20); MAGNESIUM 2.3 mg/dl (1.8-2.4); POTASSIUM 4.1 mmol/L (3.5-5.1)
[2017-03-13 08:03] LABS: ESTIMATED AVERAGE GLUCOSE 134 mg/dl; HA1C FLAG Normal (Normal)
[2017-03-13] MEDS: ACETAMINOPHEN 325 MG TAB PO PRN (08:11)
[2017-03-13] MEDS: DOXYCYCLINE HYCLATE 100 MG CAP PO SCH ×2 (08:12→21:12)
[2017-03-13] MEDS: SERTRALINE HCL 100 MG TAB PO SCH (08:12)
[2017-03-13] MEDS: ENOXAPARIN 40 MG/0.4 ML SYR SC SCH (08:12)
[2017-03-13] MEDS: LISINOPRIL 20 MG TAB PO SCH (08:13)
[2017-03-13] MEDS: FLUTICASONE FUROATE-VILANTEROL 200/25 MCG INH INH SCH (08:13)
[2017-03-13] MEDS: RANITIDINE HCL 150 MG TAB PO SCH ×2 (08:13→21:12)
[2017-03-13] MEDS: ROFLUMILAST 500 MCG TAB PO SCH (08:13)
--- NOTE | 2017-03-13 08:56 | Progress Note ---
Internal Med Progress Note Date of Service: Mar 13, 2017. Provider Documentation: SUBJECTIVE: Seen and examined at bedside States feeling well Had palpitations overnight Reports one loose BM Less cough Denies chest pain, SOB, dizziness, nausea, abd pain No other complaints OBJECTIVE: Vital Signs-as noted below Physical Exam: General Appearance:Moderately built and nourished, no apparent distress Head: normocephalic, Atraumatic Eyes: normal inspection, EOMI, PERRL Neck: supple, Trachea midline Respiratory/Chest: decreased breath sounds, CTA Cardiovascular: S1, S2, No murmur Abdomen/GI:Soft, Non tender, Bowel sounds present Extremities/Musculoskelatal:normal inspection, no edema Neurologic/Psych:AAOX3, grossly no focal neurological deficits Skin: normal color, warm Lab data as noted below. ASSESSMENT & PLAN: Severe sepsis: Acute on Chronic respiratory failure with Hypoxia COPD exacerbation/Complicated bronchitis CXR: No signs of consolidation UA: normal (Already took Macrobid for UTI like symptoms prior to admission) Blood cultures: No growth to date Influenza Negative Check Stool for C.diff lactate levels normalized Persistent Leukocytosis and elevated Procalcitonin Saturating well on Room air Oxygen support PRN to maintain Sats 88-92% Continue Abx:Ceftriaxone, Doxy for now Duonebs, home inhalers Continue prednisone Decrease IV fluids Will consult ID for further Input Needs sleep study as outpatient for possible underlying sleep apnea SVT: H/O Palpitations Appreciate Cardiology Input Continue Metoprolol ECHO: as below Monitor electrolytes Hypertension: On lisinopril, Metoprolol Monitor Mood disorder: stable Continue home meds Prediabetes: A1C: 6.3 DVT px: Lovenox subQ. Code Status: Full code Disposition: Monitor in tele PROCEDURES: ECHO: * There is mild concentric left ventricular hypertrophy. * No regional wall motion abnormalities noted. * The left ventricle is hyperdynamic. * Ejection Fraction = >70 %. * The right ventricle is normal in size and function. * Doppler findings do not suggest pulmonary hypertension. Vital Signs: Date Time Temp Pulse Resp B/P (MAP) Pulse Ox O2 Delivery O2 Flow Rate FiO2 03/13/17 08:12 36.9 69 16 142/62 (88) 94 Room Air 03/13/17 07:26 84 18 96 Room Air 03/13/17 04:00 Room Air 03/13/17 03:20 36.5 98 22 101/64 (76) 91 Room Air 03/13/17 01:57 90 18 93 Room Air 03/13/17 00:00 Room Air 03/12/17 23:55 36.6 95 18 126/83 (97) 92 Room Air 03/12/17 20:00 91 Room Air 03/12/17 19:54 36.5 100 20 118/77 (91) 91 Room Air 03/12/17 19:25 82 18 93 Room Air 03/12/17 16:00 92 Room Air 03/12/17 15:45 36.4 96 22 130/80 (97) 92 Room Air 03/12/17 14:17 89 18 93 Room Air 03/12/17 12:00 Room Air 03/12/17 11:10 36.5 85 19 110/74 (86) 92 Room Air Lab Results: Results Past 24 Hours Test 03/12/17 09:21 03/12/17 18:44 03/13/17 06:38 Range/Units Lactic Acid Level 2.6 1.4 0.4-2.0 mmol/L White Blood Count 24.28 4.8-10.8 K/uL Red Blood Count 4.14 4.2-5.4 M/uL Hemoglobin 12.0 12.0-16.0 g/dL Hematocrit 36.7 37-47 % Mean Corpuscular Volume 88.6 80-100 fL Mean Corpuscular Hemoglobin 29.0 25-34 pg Mean Corpuscular Hemoglobin Concent 32.7 32-36 g/dl Platelet Count 377 130-400 K/uL Mean Platelet Volume 9.1 7.4-10.4 fL Neutrophils (%) (Auto) 77.1 % Lymphocytes (%) (Auto) 15.0 % Monocytes (%) (Auto) 7.0 % Eosinophils (%) (Auto) 0.4 % Basophils (%) (Auto) 0.1 % Neutrophils # (Auto) 18.72 1.4-6.5 K/uL Lymphocytes # (Auto) 3.65 1.2-3.4 K/uL Monocytes # (Auto) 1.69 0.11-0.59 K/uL Eosinophils # (Auto) 0.10 0-0.5 K/uL Basophils # (Auto) 0.03 0-0.2 K/uL RDW Standard Deviation 43.4 36.4-46.3 fL RDW Coefficient of Variation 13.3 11.5-14.5 % Immature Granulocyte % (Auto) 0.4 % Immature Granulocyte # (Auto) 0.09 0.00-0.02 K/uL Sodium Level 144 136-145 mmol/L Potassium Level 4.1 3.5-5.1 mmol/L Chloride Level 113 98-107 mmol/L Carbon Dioxide Level 25 21-32 mmol/L Anion Gap 6.0 3-11 mmol/L Blood Urea Nitrogen 17 7-18 mg/dl Creatinine 0.79 0.60-1.20 mg/dl Est Creatinine Clear Calc Drug Dose 90.0 ml/min Estimated GFR () 97.7 Estimated GFR (Non- 84.3 BUN/Creatinine Ratio 21.9 10-20 Random Glucose 104 70-99 mg/dl Estimated Average Glucose 134 mg/dl Hemoglobin A1c 6.3 4.5-5.6 % Calcium Level 8.4 8.5-10.1 mg/dl Magnesium Level 2.3 1.8-2.4 mg/dl Procalcitonin 5.64 0-0.5 ng/ml
[2017-03-13] MEDS ORDERED: METOPROLOL SUCC 25MG EXT REL TAB PO SCH (09:00)
[2017-03-13] MEDS: CEFTRIAXONE SOD INJ 1 GM in DEXTROSE 5% ADD-VANTAGE 50ML 50 ML IV SCH (10:02)
--- NOTE | 2017-03-13 10:04 | Cardiology Follow-Up ---
Subjective General Date of Service: Mar 13, 2017. Chief Complaint: Pt evaluation today including: conversation w/ patient, physical exam, chart review, lab review, review of studies, review of inpatient medication list History of Present Illness Patient feeling better today. SOB improving. No chest pain. No sense of palpitations or tachypalpitations. No dizziness. Telemetry reviewed - NSR in 70-80's. One short burst of SVT, lasting 5 beats this AM. Asymptomatic. Allergies Coded Allergies: Levofloxacin (Unverified Allergy, Severe, HIVES, 03/11/17) Sulfamethoxazole w/Trimethoprim (Unverified Allergy, Severe, HIVES, ) Social History Smoking Status: Former Smoker Hx Alcohol Use - Type And Amou: Yes (QUIT 1 YEAR AGO. PREVIOUSLY DRANK 3-5 BEERS/NIGHT [id number]) Hx Substance Use - Type And Am: No Problem List Medical Problems: (1) COPD exacerbation Status: Acute (2) Hypoxia Status: Acute Review of Systems Respiratory: + cough, No sputum, No wheezing, No shortness of breath, No dyspnea at rest, No hemoptysis Cardiac: No chest pain, No orthopnea, No PND, No edema, No palpitations Physical Exam Vital Signs Last Vital Signs Documentation Date Time Temp Pulse Resp B/P (MAP) Pulse Ox O2 Delivery O2 Flow Rate FiO2 03/13/17 08:12 36.9 69 16 142/62 (88) 94 Room Air 03/12/17 16:00 Physical Exam Constitutional: General Apperance: heathly-appearing Level of Distress: NAD Psychiatric: Mental Status: active & alert Orientation: to time, to place, to person Head: normocephalic Eyes: Pupils: PERRLA Neck: supple Lungs: Respiratory effort: no dyspnea Auscultation: no wheezing, no rales/crackles, no rhonchi Cardiovascular: Apical Impulse: not displaced Heart Auscultation: RRR, normal S1, normal S2 Abdomen: Bowel Sounds: normal Extremities: no edema Assessment and Plan Assessment and Plan 1. Paroxysmal non sustained SVT, 2 episodes yesterday AM, -patient was asymptomatic -lasted 23 beats and 16 beats respectively, converting to NSR spontaneously -had one 5 beat run of SVT this AM. Asymptomatic. -has a history of nonspecific palpitations, taking metoprolol for > 10 years for symptoms. Well controlled at home. -recommend potassium > 4 and magnesium > 2 -Echo with normal LV function, no significant valvular disease, no pulm hypertension -would continue current dose of metoprolol currently as she is asymptomatic and likely a result of current respiratory therapies/COPD exacerbation. 2. sinus tachycardia on admission - due to respiratory distress -heart rates improved on telemetry currently 2. Acute on chronic respiratory failure, COPD exacerbation -continue treatment per hospitalist. 3. Hypertension - controlled Continue metoprolol 25 mg daily. Stable echo findings. No further cardiac testing warranted at this time. Will sign off. Please notify radio station audio engineer provider with additional questions or concerns. Case discussed with Dr. Avery. CARDIOLOGY ATTENDING ADDENDUM: The patient was seen and personally examined. Agree with Analisa Hernandez PA-C's findings and plans as documented above. Patient describes feeling well. No palpitations. No chest pain. Since she was seen by Rizwan Hernandez PAC this am, had a 12 beat run of SVT at 1125 am at 150 bpm from which she was asymptomatic. Exam: CV regular Ext : no edema Impression: PSVT, AECOPD Plan: Increase metoprolol succinate to 50 mg daily. Continue at discharge. Will sign off, call with questions or concerns. Laboratory Results Last 24 Hours Test 03/12/17 18:44 03/13/17 06:38 Lactic Acid Level 1.4 mmol/L White Blood Count 24.28 K/uL Red Blood Count 4.14 M/uL Hemoglobin 12.0 g/dL Hematocrit 36.7 % Mean Corpuscular Volume 88.6 fL Mean Corpuscular Hemoglobin 29.0 pg Mean Corpuscular Hemoglobin Concent 32.7 g/dl Platelet Count 377 K/uL Mean Platelet Volume 9.1 fL Neutrophils (%) (Auto) 77.1 % Lymphocytes (%) (Auto) 15.0 % Monocytes (%) (Auto) 7.0 % Eosinophils (%) (Auto) 0.4 % Basophils (%) (Auto) 0.1 % Neutrophils # (Auto) 18.72 K/uL Lymphocytes # (Auto) 3.65 K/uL Monocytes # (Auto) 1.69 K/uL Eosinophils # (Auto) 0.10 K/uL Basophils # (Auto) 0.03 K/uL RDW Standard Deviation 43.4 fL RDW Coefficient of Variation 13.3 % Immature Granulocyte % (Auto) 0.4 % Immature Granulocyte # (Auto) 0.09 K/uL Sodium Level 144 mmol/L Potassium Level 4.1 mmol/L Chloride Level 113 mmol/L Carbon Dioxide Level 25 mmol/L Anion Gap 6.0 mmol/L Blood Urea Nitrogen 17 mg/dl Creatinine 0.79 mg/dl Est Creatinine Clear Calc Drug Dose 90.0 ml/min Estimated GFR () 97.7 Estimated GFR (Non- 84.3 BUN/Creatinine Ratio 21.9 Random Glucose 104 mg/dl Estimated Average Glucose 134 mg/dl Hemoglobin A1c 6.3 % Calcium Level 8.4 mg/dl Magnesium Level 2.3 mg/dl Procalcitonin 5.64 ng/ml
--- NOTE | 2017-03-13 10:08 | Progress Note ---
Progress Note Date of Service Mar 13, 2017. Progress Note ID Consult Dictated #[id number] A/P: 1. COPD Exacerbation 2. Leukocytosis - likely multifactorial, infection + steroids -Continue abx for now -Will check Legionella antigen as well -Clinically improving -If culture negative, would suggest completing 10 day course po doxy -Thank you
--- NOTE | 2017-03-13 10:11 | INFECT. DISEASE CONSULTATION ---
DATE OF CONSULTATION: 03/13/2017 REQUESTING PHYSICIAN: Morris Dasilva MD. HISTORY OF PRESENT ILLNESS: This is a 57-year-old female who was admitted to the hospital secondary to worsening cough and shortness of breath. She does admit that her cough is dry. She denies any productive sputum. She denies any hemoptysis. She does have a history of COPD. She states since admission to the hospital she is feeling significantly better. She denies any fevers or chills. She did have an elevated temperature of 37.6, which was isolated overnight. She denies any wheezing, shortness of breath or dyspnea on exertion. In the ER she received Zosyn, doxycycline and Solu-Medrol as well as nebulizer treatment. Her white blood cell count initially was 17, it increased to 24,000. She was placed on Rocephin and doxycycline on admission. She had an elevated lactate at 3.2 on admission. This has improved to 1.4. Her blood cultures were obtained and are negative. Her chest x-ray showed chronic changes with no infiltration. Her procalcitonin was elevated at 5.6. Urinalysis was negative. Flu swab was negative. Pertussis studies are pending. She is tolerating antibiotics well. She states she is feeling better today. She did also have some tachyarrhythmia and has been followed by cardiology as well. Currently, she denies any chest pain, cough, shortness of breath, nausea, vomiting, diarrhea or abdominal pain. REVIEW OF SYSTEMS: Remaining review of systems are unremarkable. PAST MEDICAL HISTORY: Significant for COPD, hypertension and mood disorder. PAST SURGICAL HISTORY: Unremarkable. ALLERGIES: SHE HAS ALLERGIES TO BACTRIM AND LEVAQUIN. FAMILY HISTORY: Noncontributory. SOCIAL HISTORY: Significant for history of tobacco use. She denies any alcohol or drug use. CURRENT MEDICATIONS: Include Toprol-XL, fluticasone, ceftriaxone, Lovenox, prednisone, doxycycline, lisinopril, Zantac, Daliresp, Zoloft, Atrovent, Xopenex and Tylenol. PHYSICAL EXAMINATION: VITAL SIGNS: She is afebrile, pulse 69, respiratory rate 16, blood pressure is 142/62, oxygen saturation is 94% on room air. GENERAL: She is awake, alert and oriented x3. She is in no acute distress. HEENT: Mucous membranes are moist. Extraocular muscles are intact. HEART: Regular. LUNGS: Clear bilaterally. There is no wheezing or rhonchi. ABDOMEN: Soft. There is no edema. SKIN: Without rash. LABORATORY STUDIES: CBC reveals a white blood cell count 24.2, hemoglobin is 12 and platelets are 377. Chemistry panel reveals sodium of 144, potassium 4.1, chloride 113, bicarbonate 25, BUN 17, creatinine 0.7, glucose is 134, lactic acid yesterday was 1.4. Procalcitonin was elevated at 5.6. Urinalysis was unremarkable. Again, flu swab, hepatitis C antibody are negative. Pertussis serologies are pending. Blood cultures are no growth x2 sets. A chest x-ray on the shows interstitial opacity at the lung bases suggesting chronic change or atelectasis. ASSESSMENT AND PLAN: 1. Likely tracheobronchitis or atypical pneumonia. 2. Leukocytosis, likely multifactorial due to both intravenous and oral steroids as well as infection. She is currently on Rocephin and doxycycline. Her cultures are negative, legionella antigen will also be ordered. I would recommend continuing on antibiotics for now. If her cultures are negative and she has clinical improvement, she certainly could be discharged to home on a 10-day course of doxycycline to treat for a bronchitis or possible atypical pneumonia. Thank you for this consultation.
[2017-03-13] MEDS ORDERED: ONDANSETRON INJ 2 MG/ML 2 ML VIAL ONE (22:14)
[2017-03-13] MEDS ORDERED: ONDANSETRON INJ 2 MG/ML 2 ML VIAL IV PRN (22:15)
[2017-03-14] MEDS: IPRATROPIUM BROMIDE NEB SOLN 0.02% 2.5 ML VIAL INH SCH ×2 (02:32→07:15)
[2017-03-14] MEDS: LEVALBUTEROL 1.25MG/0.5ML NEB INH SCH ×2 (02:33→07:15)
[2017-03-14] MEDS: ACETAMINOPHEN 325 MG TAB PO PRN (03:08)
[2017-03-14 03:35] VITALS: BP 122/76; PULSE 77; TEMP 37.7; O2SAT 93
[2017-03-14 06:33] LABS: BASO % 0.2 %; BASO ABS # 0.03 K/uL (0-0.2); COMPLETE YES; EOS % 2.3 %; HEMATOCRIT 37.2 % (37-47); IG% 0.4 %; LYMPH % 29.2 %; MEAN CELL VOLUME 89.6 fL (80-100); MEAN CORPUSCULAR HEMOGLOBIN 29.4 pg (25-34); MEAN CORPUSCULAR HGB CONC 32.8 g/dl (32-36); MEAN PLATELET VOLUME 9.1 fL (7.4-10.4); MONO % 7.4 %; NEUT % 60.5 %; PLATELET COUNT 393 K/uL (130-400); RED BLOOD COUNT 4.15 M/uL (4.2-5.4); WHITE BLOOD COUNT 15.05 K/uL (4.8-10.8)
[2017-03-14 07:06] LABS: BUN/CREATININE RATIO 21.1 (10-20); CALCIUM 8.7 mg/dl (8.5-10.1); CREATININE 0.86 mg/dl (0.60-1.20); MAGNESIUM 2.2 mg/dl (1.8-2.4); POTASSIUM 3.9 mmol/L (3.5-5.1)
[2017-03-14 07:15] VITALS: PULSE 81; O2SAT 92
[2017-03-14] MEDS: ROFLUMILAST 500 MCG TAB PO SCH (08:14)
[2017-03-14] MEDS: FLUTICASONE FUROATE-VILANTEROL 200/25 MCG INH INH SCH (08:15)
[2017-03-14] MEDS: LISINOPRIL 20 MG TAB PO SCH (08:16)
[2017-03-14] MEDS: RANITIDINE HCL 150 MG TAB PO SCH (08:16)
[2017-03-14] MEDS: ENOXAPARIN 40 MG/0.4 ML SYR SC SCH (08:16)
[2017-03-14] MEDS: SERTRALINE HCL 100 MG TAB PO SCH (08:16)
[2017-03-14] MEDS: DOXYCYCLINE HYCLATE 100 MG CAP PO SCH (08:16)
[2017-03-14] MEDS ORDERED: METOPROLOL SUCC 50MG EXT REL TAB PO SCH (09:00)
--- NOTE | 2017-03-14 10:00 | Progress Note ---
Internal Med Progress Note Date of Service: Mar 14, 2017. Provider Documentation: SUBJECTIVE: Seen and examined at bedside Feels much better Palpitations resolved Less cough Denies chest pain, SOB, dizziness, nausea, abd pain No other complaints OBJECTIVE: Vital Signs-as noted below Physical Exam: General Appearance:Moderately built and nourished, no apparent distress Head: normocephalic, Atraumatic Eyes: normal inspection, EOMI, PERRL Neck: supple, Trachea midline Respiratory/Chest: decreased breath sounds, CTA Cardiovascular: S1, S2, No murmur Abdomen/GI:Soft, Non tender, Bowel sounds present Extremities/Musculoskelatal:normal inspection, no edema Neurologic/Psych:AAOX3, grossly no focal neurological deficits Skin: normal color, warm Lab data as noted below. ASSESSMENT & PLAN: Severe sepsis: Acute on Chronic respiratory failure with Hypoxia COPD exacerbation/Tracheobronchitis/Atypical Pneumonia CXR: No signs of consolidation UA: normal (Already took Macrobid for UTI like symptoms prior to admission) Blood cultures: No growth to date Influenza Negative Stool for C.diff: negative lactate levels normalized Leukocytosis and Procalcitonin trending down Saturating well on Room air Oxygen support PRN to maintain Sats 88-92% Continue Abx:Ceftriaxone, Doxy Duonebs, home inhalers Continue prednisone DC IV fluids Appreciate ID Input Needs sleep study as outpatient for possible underlying sleep apnea SVT: H/O Palpitations Appreciate Cardiology Input Continue Metoprolol which is increased to 50mg daily ECHO: as below Monitor electrolytes Hypertension: On lisinopril, Metoprolol Monitor Mood disorder: stable Continue home meds Prediabetes: A1C: 6.3 DVT px: Lovenox subQ. Code Status: Full code Disposition: Plan to discharge home today Follow up with your PCP in 1 week as advised Complete the Antibiotic and prednisone course as prescribed Get sleep study as outpatient for possible underlying sleep apnea Seek immediate medical attention if your symptoms reoccur or worsen PROCEDURES: ECHO: * There is mild concentric left ventricular hypertrophy. * No regional wall motion abnormalities noted. * The left ventricle is hyperdynamic. * Ejection Fraction = >70 %. * The right ventricle is normal in size and function. * Doppler findings do not suggest pulmonary hypertension. Vital Signs: Date Time Temp Pulse Resp B/P (MAP) Pulse Ox O2 Delivery O2 Flow Rate FiO2 03/14/17 08:00 Room Air 03/14/17 07:15 81 16 92 Room Air 03/14/17 04:00 Room Air 03/14/17 03:35 37.7 77 16 122/76 (91) 93 Room Air 03/14/17 00:00 Room Air 03/13/17 23:45 36.7 95 20 128/85 (99) 93 03/13/17 20:00 Room Air 03/13/17 19:51 86 18 96 Room Air 03/13/17 19:44 36.4 88 20 125/78 (94) 94 Room Air 03/13/17 16:00 93 Room Air 03/13/17 15:42 36.5 93 20 110/72 (85) 93 Room Air 03/13/17 14:29 82 18 95 Room Air 03/13/17 12:00 Room Air 03/13/17 11:48 36.6 86 19 121/79 (93) 93 Room Air Lab Results: Results Past 24 Hours Test 03/14/17 05:58 Range/Units White Blood Count 15.05 4.8-10.8 K/uL Red Blood Count 4.15 4.2-5.4 M/uL Hemoglobin 12.2 12.0-16.0 g/dL Hematocrit 37.2 37-47 % Mean Corpuscular Volume 89.6 80-100 fL Mean Corpuscular Hemoglobin 29.4 25-34 pg Mean Corpuscular Hemoglobin Concent 32.8 32-36 g/dl Platelet Count 393 130-400 K/uL Mean Platelet Volume 9.1 7.4-10.4 fL Neutrophils (%) (Auto) 60.5 % Lymphocytes (%) (Auto) 29.2 % Monocytes (%) (Auto) 7.4 % Eosinophils (%) (Auto) 2.3 % Basophils (%) (Auto) 0.2 % Neutrophils # (Auto) 9.10 1.4-6.5 K/uL Lymphocytes # (Auto) 4.40 1.2-3.4 K/uL Monocytes # (Auto) 1.12 0.11-0.59 K/uL Eosinophils # (Auto) 0.34 0-0.5 K/uL Basophils # (Auto) 0.03 0-0.2 K/uL RDW Standard Deviation 42.9 36.4-46.3 fL RDW Coefficient of Variation 13.1 11.5-14.5 % Immature Granulocyte % (Auto) 0.4 % Immature Granulocyte # (Auto) 0.06 0.00-0.02 K/uL Sodium Level 144 136-145 mmol/L Potassium Level 3.9 3.5-5.1 mmol/L Chloride Level 111 98-107 mmol/L Carbon Dioxide Level 28 21-32 mmol/L Anion Gap 5.0 3-11 mmol/L Blood Urea Nitrogen 18 7-18 mg/dl Creatinine 0.86 0.60-1.20 mg/dl Est Creatinine Clear Calc Drug Dose 83.0 ml/min Estimated GFR () 88.1 Estimated GFR (Non- 76.1 BUN/Creatinine Ratio 21.1 10-20 Random Glucose 84 70-99 mg/dl Calcium Level 8.7 8.5-10.1 mg/dl Magnesium Level 2.2 1.8-2.4 mg/dl Procalcitonin 3.02 0-0.5 ng/ml Microbiology Results 03/13/17 C.difficile Toxin B Gene (PCR) - Final, Complete No C. difficile toxin B gene detected
[2017-03-14] MEDS ORDERED: DXY100 PO (10:03)
[2017-03-14] MEDS ORDERED: TPRSR50 PO (10:03)
[2017-03-14] MEDS ORDERED: PRD20 PO (10:03)
--- NOTE | 2017-03-14 10:06 | Discharge Summary ---
Discharge Summary Date of Service Mar 14, 2017. Discharge Summary Admission Date: Mar 12, 2017 at 01:25 Discharge Date: Mar 14, 2017 Discharge Disposition: Home Principal Diagnosis: Sepsis, Tracheobronchitis/Atypical pneumonia, SVT Procedures: CXR: Interstitial opacities of the lung bases suggest chronic changes or atelectasis. No acute cardiopulmonary process identified. Consultations: Cardiology, ID Pending Studies/Follow-Up: Follow up with your PCP in 1 week as advised Complete the Antibiotic and prednisone course as prescribed Get sleep study as outpatient for possible underlying sleep apnea Seek immediate medical attention if your symptoms reoccur or worsen Medication Reconciliation New Medications: Doxycycline Hyclate (Doxycycline Hyclate) 100 Mg Cap 100 MG PO BID for 7 Days, #14 CAP Metoprolol Succinate (Metoprolol Succinate ER) 50 Mg Tabcr 50 MG PO QAM for 30 Days, #30 EA 1 Refill Prednisone (Prednisone) 20 Mg Tab 40 MG PO DAILY for 2 Days, #4 TAB Continued Medications: Albuterol Hfa (Ventolin Hfa) 200 Puffs/29796 Mcg Aers 2-4 PUFFS INH Q6H, INHALER Albuterol Sulf (Proventil 0.083% 2.5MG/3ML) 2.5 Mg/3 Ml Nebu 2.5 MG INH QID, EA Fluticasone Furoate-Vilanterol (Breo Ellipta 200-25 Mcg/INH) 1 Inh Inh 1 PUFF INH UD Lisinopril (Zestril) 20 Mg Tab 20 MG PO DAILY, TAB Ranitidine (Zantac) 150 Mg Tab 150 MG PO BID, TAB Roflumilast (Daliresp) 500 Mcg Tab 1 TAB PO DAILY Sertraline (Zoloft) 100 Mg Tab 100 MG PO DAILY, TAB Umeclidinium Alexander (Incruse Ellipta) 62.5 Mcg/Inh Inh 1 PUFF INH UD Discontinued Medications: Metoprolol Succ (Toprol Xl) (Toprol-Xl) 25 Mg Tabcr 25 MG PO DAILY, TAB Nitrofurantoin Monohyd Macrocr (Macrobid) 100 Mg Cap 100 MG PO BID, #6 CAP Admission Information HPI (per Admitting provider): PRIMARY CARE DOCTOR: Dr. Lira. CHIEF COMPLAINT: Cough, shortness of breath. HISTORY OF PRESENT ILLNESS: History obtained from patient and ER records. Medical history significant for COPD, past tobacco abuse, hypertension, mood disorder. Yesterday, patient noted to have bladder discomfort. Seen at PCP's office. Prescribed Macrodantin for possible UTI. Symptoms improved with a few doses. Patient also noted to have dry cough sx yesterday morning. Px woke up last night with worsening cough, shortness of breath, fever, chills. Patient noted to be in respiratory distress at the Emergency Room. Received Solu-Medrol, nebs, Doxycycline and Zosyn for COPD exacerbation. Physical Exam (per Admitting): PHYSICAL EXAMINATION: VITAL SIGNS: Blood pressure was noted to be 181/190, later 140/94, pulse rate 121, RR 30, later 18, temperature noted to be 37.6, sats 86% on room air. GENERAL: Noted to be obese, comfortable, no respiratory distress. SKIN: Normal color, warm. HEENT: Pale palpebral conjunctivae. No ptosis. Dry buccal mucosa. NECK: Supple. No tenderness. LUNGS: Decreased breath sounds. No tenderness. CV: Tachycardic. palpable LE pulses . ABDOMEN: Some distention, nontender. EXTREMITIES: No edema, no tenderness. No gross deformities. NEUROLOGIC: Coherent. No gross focality. Hospital Course Severe sepsis: Acute on Chronic respiratory failure with Hypoxia COPD exacerbation/Tracheobronchitis/Atypical Pneumonia CXR: No signs of consolidation UA: normal (Already took Macrobid for UTI like symptoms prior to admission) Blood cultures: No growth to date Influenza Negative Stool for C.diff: negative lactate levels normalized Leukocytosis and Procalcitonin trending down Saturating well on Room air Oxygen support PRN to maintain Sats 88-92% Continue Abx:Ceftriaxone, Doxy Duonebs, home inhalers Continue prednisone DC IV fluids Appreciate ID Input Needs sleep study as outpatient for possible underlying sleep apnea SVT: H/O Palpitations Appreciate Cardiology Input Continue Metoprolol which is increased to 50mg daily ECHO: as below Monitor electrolytes Hypertension: On lisinopril, Metoprolol Monitor Mood disorder: stable Continue home meds Prediabetes: A1C: 6.3 DVT px: Lovenox subQ. Code Status: Full code Disposition: Plan to discharge home today Follow up with your PCP in 1 week as advised Complete the Antibiotic and prednisone course as prescribed Get sleep study as outpatient for possible underlying sleep apnea Seek immediate medical attention if your symptoms reoccur or worsen PROCEDURES: ECHO: * There is mild concentric left ventricular hypertrophy. * No regional wall motion abnormalities noted. * The left ventricle is hyperdynamic. * Ejection Fraction = >70 %. * The right ventricle is normal in size and function. * Doppler findings do not suggest pulmonary hypertension. Total time spent on discharge =34 minutes This includes examination of the patient, discharge planning, medication reconciliation, and communication with other providers. Discharge Instructions Discharge Instructions Date of Service Mar 14, 2017. Admission Reason for Admission: Sepsis Discharge Discharge Diagnosis / Problem: Sepsis, Tracheobronchitis/Atypical pneumonia, SVT Discharge Goals Goal(s): Decrease discomfort, Improve function Activity Recommendations Activity Limitations: resume your previous activity Exercise/Sports Limitations: as tolerated . Instructions / Follow-Up Instructions / Follow-Up Follow up with your PCP in 1 week as advised Complete the Antibiotic and prednisone course as prescribed Get sleep study as outpatient for possible underlying sleep apnea Seek immediate medical attention if your symptoms reoccur or worsen Current Hospital Diet Patient's current hospital diet: AHA Diet (Heart Healthy) Discharge Diet Recommended Diet: AHA Diet (Heart Healthy) Pending Studies Studies pending at discharge: no Laboratory Results Hemoglobin A1c Test 03/13/17 06:38 Range/Units Estimated Average Glucose 134 mg/dl Hemoglobin A1c 6.3 H 4.5-5.6 % Medical Emergencies . Who to Call and When: Medical Emergencies: If at any time you feel your situation is an emergency, please call 911 immediately. . Non-Emergent Contact Non-Emergency issues call your: Primary Care Provider Call Non-Emergent contact if: you have a fever, your pain is not controlled, your pain is worsening, your pain is unusual for you, your pain is concerning you, you have any medication questions Seek immediate medical attention if your symptoms reoccur or worsen . . "Provider Documentation" section prepared by Morris Dasilva. . VTE Core Measure Inpt VTE Proph given/why not?: Enoxaparin (Lovenox)SQ
[2017-03-14 10:46] VITALS: BP 122/76; PULSE 81; TEMP 37.7; O2SAT 92
== END 2017-03-14 11:12 | disposition home or self-care (01) | DRG 871 ==
LOC: EDBD 22:25 → C.EDC 22:27 → C.2T 03-12 01:25 → ENRESERV 03-12 01:36
PROVIDERS: ADMIT Internal Medicine; ATTEND Internal Medicine
DX: A41.9 Sepsis, unspecified organism (principal); J96.21 Acute and chronic respiratory failure with hypoxia; J44.0 Chronic obstructive pulmonary disease with (acute) lower respiratory infection; J44.1 Chronic obstructive pulmonary disease with (acute) exacerbation; I10 Essential (primary) hypertension; R65.20 Severe sepsis without septic shock; R73.9 Hyperglycemia, unspecified; I48.0 Paroxysmal atrial fibrillation; Z79.899 Other long term (current) drug therapy

== ENCOUNTER 2019-07-19 05:19 | Inpatient (IN) ==
[2019-06-30 13:21] LABS: Basophils # (auto) 0.06 K/uL (0-0.2); Basophils % (auto) 0.4 %; Eosinophils # (auto) 0.44 K/uL (0-0.5); Hematocrit (blood only) 42.6 % (37-47); Hemoglobin 13.7 g/dL (12.0-16.0); Immature Granulocytes # (auto) 0.06 K/uL (0.00-0.02); Immature Granulocytes % (auto) 0.4 %; Lymphocytes # (auto) 3.52 K/uL (1.2-3.4); Lymphocytes % (auto) 23.8 %; Mean Corpuscular Hemoglobin 29.1 pg (25-34); Mean Corpuscular Hgb Conc 32.2 g/dL (32-36); Mean Corpuscular Volume 90.6 fL (80-100); Mean Platelet Volume 9.4 fL (7.4-10.4); Monocytes # (auto) 1.43 K/uL (0.11-0.59); Monocytes % (auto) 9.7 %; Neutrophils # (auto) 9.29 K/uL (1.4-6.5); Neutrophils % (auto) 62.7 %; Platelet Count 437 K/uL (130-400); RDW Coefficient of Variation 12.9 % (11.5-14.5); RDW Standard Deviation 42.5 fL (36.4-46.3)
[2019-06-30 13:31] LABS: BUN Creatinine Ratio 19.6 (10-20); Blood Urea Nitrogen 18 mg/dl (7-18); Calcium 9.6 mg/dl (8.5-10.1); Carbon Dioxide 28 mmol/L (21-32); Chloride 109 mmol/L (98-107); Est GFR (African American) 79.1; Est GFR (Non-African American) 68.2; Glucose 89 mg/dl (70-99); Potassium 3.7 mmol/L (3.5-5.1); Sodium 141 mmol/L (136-145)
--- NOTE | 2019-07-01 08:46 | Anesthesiology Consultation ---
Date of Service July 01, 2019 Assessment & Plan (1) Encounter for pre-operative examination: Chart Review Chart Review: Acceptable Risk for Surgery and Patient NOT seen in Pre Admission Testing History Surgery Operation Date: 07/19/19 07:30 Proposed Procedures p Robotic Right Video Assisted Thoracoscopy with Right Lower Lobectomy and Mediastinal Lymphadenectomy - Bulmaro Echavarria MD, FACS Height/Weight Height: 5 ft 6 in Weight: 102.965 kg Allergies Allergy/AdvReac Type Severity Reaction Status Date / Time Bactrim Allergy Severe HIVES Unverified 03/11/17 23:02 levofloxacin Allergy Severe HIVES Unverified 06/30/19 15:50 sulfamethoxazole Allergy Severe HIVES Unverified 06/30/19 15:50 trimethoprim Allergy Severe HIVES Unverified 06/30/19 15:50 Medications Home Medications Medication Instructions Recorded Confirmed Last Taken fluticasone fur. 100 mcg-umeclid 1 puffs INH Q24H 06/28/19 06/30/19 Unknown 62.5 mcg-vilant 25 mcg inhalat.powder lisinopril 20 mg tablet 20 mg PO QAM 06/28/19 06/30/19 Unknown metoprolol tartrate 50 mg tablet 50 mg PO QAM 06/28/19 06/30/19 Unknown ranitidine HCl 150 mg tablet 150 mg PO HS 06/28/19 06/30/19 Unknown roflumilast 500 mcg tablet 500 mcg PO QAM 06/28/19 06/30/19 Unknown sertraline 100 mg tablet 100 mg PO QAM 06/28/19 06/30/19 Unknown albuterol sulfate 2 puff INHALATION 6XD 06/30/19 06/30/19 Unknown prednisone 20 mg PO DAILY PRN 06/30/19 06/30/19 Unknown Past Medical History Medical History Adenocarcinoma, lung dx 2019 and then pet scan 06/30/2019 Asthma Bronchitis hx of COPD (chronic obstructive pulmonary disease) Emphysema lung H/O paroxysmal supraventricular tachycardia Nonsustained. Asymptomatic. Noted on admission in 2016. Seen by cardio and recommended to continue metoprolol. Hyperlipemia Hypertension Past Family History Family History Mother Heart disease CABG Other Breast cancer Diabetes Hypertension Stroke Past Surgical History Surgical History H/O breast surgery right breast marker clip 2010 History of laryngoscopy bx mass History of lung biopsy Dr. Hector Oshea Lung: Right lung + adenocarcinoma 06/2019 Hx of colonoscopy Social History Smoking Status: Former smoker Do You Dip or Chew Tobacco: No Smoking End Date: 2015 Hx Alcohol Use: Yes Alcohol type: beer alcohol intake frequency: holidays/special occasions only Hx Substance Use: No substance use type: does not use Testing Laboratory Results 06/30/19 11:59 06/30/19 11:59 Leukocytosis noted since at least 2016 per previous lab records - current WBC ct stable and actually improved from previous Electrocardiogram Date: 06/30/19 Findings: + no change from (03/11/2017) Normal sinus rhythm with sinus arrhythmia at [address] abnormality. Chest X-Ray Date: 06/08/19 Chest x-ray view postprocedure = right lower lobe cavitary nodular opacity is vaguely seen. Lungs are without evidence of acute infiltrate. No pneumothorax. Pulmonary vasculature and cardiomediastinal silhouette appears within normal limits Echocardiogram Date: 03/12/17 EF: Greater than 70% RWMA: + none Other Findings: + LVH (Mild/concentric) Valvular Disease: + no significant valvular disease Left ventricle is hyperdynamic. Doppler findings do not suggest pulmonary hypertension. Grade 1 diastolic dysfunction Other Testing PET scan 06/29/2019= decreased size and minimal metabolic activity associated with the biopsy proven right lower lobe malignancy. No evidence of bjorn or distant metastasis. Asymmetrically increased activity within the right thyroid lobe, may reflect thyroiditis. PFT 06/30/19= FEV1/FVC ratio 57% pre bronchodilator and 56% post. FEV1 1.59 li ters pre, and 1.55 liters post with -2% change. DLCO was 14.9mL/mmHg/min (56% of predicted) and adjusts to DLCO/VA of 3.42mL/mmHG/min/L (90%) CT Chest without contrast 05/20/19= New multiseptated cavitary lesion with solid nodular components is identified in RLL and measures 2.6 x 2.2 x 2.2 cm. Lesion is suspicious for malignancy or infectious process. Recommended pet scan or CT scan or biopsy for further evaluation. Multiple new subcentimeter pulmonary nodules (4mm nodule to RUL, 3mm nodule to RUL, 3mm nodule to anterior SELINA.) No evidence of lymphadenopathy. Stable emphysematous changes within the bilateral lungs. No evidence of pleural effusion or pneumothorax.
[2019-07-19] MEDS ORDERED: LR 15ML/HR IV SCH (06:00)
[2019-07-19] MEDS ORDERED: LIDOCAINE HCL 2% 2 ML VIAL/AMP(20MG/ML) INFIL ONE (06:34)
[2019-07-19] MEDS ORDERED: DEXAMETHASONE SOD INJ 4 MG/ML VIAL ONE (06:34)
[2019-07-19] MEDS ORDERED: GLYCOPYRROLATE 0.2 MG/ML VIAL ONE ×2 (06:34→10:20)
[2019-07-19] MEDS ORDERED: PROPOFOL IV EMULSION 10 MG/ML 20 ML VIAL IV ONE (06:34)
[2019-07-19] MEDS ORDERED: MIDAZOLAM HCL 1 MG/ML 2ML VIAL ONE (06:34)
[2019-07-19] MEDS ORDERED: fentaNYL citrate 100 MCG/2 ML VIAL ONE (06:34)
[2019-07-19] MEDS ORDERED: ONDANSETRON INJ 2 MG/ML 2 ML VIAL ONE (06:34)
[2019-07-19] MEDS ORDERED: NEOSTIGMINE METHYLSULFATE 5 MG/5 ML SYR ONE (06:34)
--- NOTE | 2019-07-19 07:01 | History & Physical Bridge Note ---
Date of Service July 19, 2019 History & Physical Bridge Note I have examined the patient, reviewed the History & Physical and in the interval since the performance of the History & Physical I have noted the following changes of clinical significance: no changes noted
[2019-07-19] MEDS ORDERED: ONDANSETRON INJ 2 MG/ML 2 ML VIAL IV PRN ×2 (07:02→12:45)
[2019-07-19] MEDS ORDERED: LABETALOL HCL IV 5 MG/ML 20ML IV PRN (07:02)
[2019-07-19] MEDS ORDERED: ATROPINE SULFATE 0.1 MG/ML 10ML SYR IV PRN (07:02)
[2019-07-19] MEDS ORDERED: KETOROLAC 30 MG/ML VIAL IV PRN (07:02)
[2019-07-19] MEDS ORDERED: BUPIVACAINE LIPOSOME 1.3% 266 MG/20 ML VIAL ONE (07:22)
[2019-07-19] MEDS ORDERED: BUPIVACAINE 0.5 % 5 MG/1 ML MPF 30ML VIAL ONE (07:22)
[2019-07-19] MEDS ORDERED: SODIUM CHLORIDE 0.9% PF 50 ML VIAL ONE (07:22)
[2019-07-19] MEDS ORDERED: ALBUTEROL 0.083% NEBU SOLN 3 ML VIAL INH PRN (08:04)
[2019-07-19] MEDS ORDERED: CEFAZOLIN 250 MG/ML 1 GM VIAL ONE (08:15)
[2019-07-19] MEDS ORDERED: PHENYLEPHRINE 100MCG/ML 5ML SYR ONE (08:27)
[2019-07-19] MEDS ORDERED: LABETALOL HCL IV 5 MG/ML 20ML IV ONE (08:27)
[2019-07-19] MEDS ORDERED: ROCURONIUM BROMIDE 10 MG/ML 5 ML VIAL ONE (08:27)
[2019-07-19] MEDS ORDERED: CEFAZOLIN 2000MG 2,000 MG/15 ML SYR IV ONE (08:45)
[2019-07-19] MEDS ORDERED: PHENYLEPHRINE HCL 10 MG/ML VIAL ONE (09:01)
[2019-07-19] MEDS ORDERED: SURGICEL ABSORB HEMOSTAT 2IN X 14IN TOP ONE (09:49)
--- NOTE | 2019-07-19 10:47 | Operative Report ---
PG Post Operative Report Pre & Post Diagnosis Operation Date: 07/19/19 07:30 Pre-Op Diagnosis: Right Lung Adenocarcinoma Post-Op Diagnosis: Right Lung Adenocarcinoma I identified the patient and participated in the time-out.: Yes Procedure Operation Date: 07/19/19 07:30 Actual Procedures p Robotic Right Video Assisted Thoracoscopy with Right Lower Lobectomy and Mediastinal Lymphadenectomy(Right) - Bulmaro Echavarria MD, FACS Surgeon Bulmaro Echavarria MD, FACS Evaporative Cooler Installer Barrett FRITZ Estimated Blood Loss 75 Findings Consistent with Post-Op Diagnosis Specimens Right lower lobe, multiple mediastinal and hilar lymph nodes Drains 24 Nauruan right chest tube Anesthesia Type General Complications none Disposition Accompanied Patient To Recovery: Yes Disposition: Recovery Room Description of Procedure This 59-year-old female was found to have a mass in her right lower lobe. A needle biopsy showed this to be an adenocarcinoma. She was deemed to be a candidate for surgery and on 07/19/2019 I brought the patient operating room and performed an uncomplicated robot-assisted right thoracoscopic lower lobectomy with mediastinal lymphadenectomy. She tolerated fine. She is extubated in the room. Procedure: Patient was brought to the operating room and laid in the supine position. General anesthesia was induced and intubation was performed with a double-lumen tube. After the patient had been positioned in the left lateral decubitus addition her right chest was prepped and draped in usual sterile fashion. After appropriate timeout of been called and prophylactic antibiotics given a 5 mm port was placed just anterior to mid axillary line in the seventh interspace. To be seen that the patient had fairly well-developed fissures and had no evidence of any adhesions. 8 mm ports were placed in the same interspace anteriorly and posteriorly. Camera port was switched over to a 12 mm port and a 5 mm port was placed further posterior and 1 interspace below. A 12 mm chemistry research assistant port was placed just above the diaphragm between the camera port and anterior port. Inferior pulmonary ligament was taken down in a right level 9 lymph node biopsy. I really do not see much in the way of level 8 lymph nodes. I dissected out the right lower lobe vein quite nicely. The inferior pulmonary vein was encircled completely but I did not take it at this point. Then went up and took a very large packet of level 7 nodes as well as a level 11 node and level 2 and 4 packet which had multiple nodes. Also took out some level 12 nodes and a few level 11 nodes. This freed up quite nicely and I dissected out the bronchus intermedius posteriorly. Then went through the fissure where we identified the artery but there was incomplete fissures and we had fired Endo YESSICA stapler on top of this to gain access to the arteries. The basilar arterial branch was taken as was the segment to the superior segment. We [id number] used the Endo YESSICA stapler to divide the anterior fissure and the posterior fissure completely. The bronchus was easily identified and was divided just below the takeoff of the bronchus To the middle lobe. Really did not see any significant bleeding. Endobag was used to remove the lobe through the chemistry research assistant port. A 24 Nauruan chest tube was placed and the camera port directed towards the apex. Is sutured in place heavy silk suture. #0 Vicryl was used to close the assistance port and then 4-0 Monocryl was used in running septic report to approximate the wound edges. Antibacterial dressings were placed. She tolerated well was extubated in the room. Blood loss was negligible and she had a small air leak conclusion of the case. Transfer to the postanesthesia care unit in stable condition. I attest to the content of the Intraoperative Record and any orders documented therein. Any exceptions are noted below.
[2019-07-19] MEDS ORDERED: METOCLOPRAMIDE HCL INJ 5 MG/ML 2 ML VIAL IV ONE (11:00)
[2019-07-19] MEDS: HYDROmorphone INJ 1 MG/ML SYRINGE IV PRN ×6 (11:08→11:35)
--- NOTE | 2019-07-19 11:11 | XRay Report ---
SINGLE VIEW CHEST CLINICAL HISTORY: Status post right lower lobe resection. FINDINGS: An AP, portable, upright chest radiograph is compared to study dated 03/11/2017 and correla jordin with PET/CT dated 06/29/2019. The examination is degraded by portable technique and patient rotati on. The cardiomediastinal silhouette is unremarkable. Emphysema and chronic interstitial thickening are similar to previous. There is volume loss in the right lung consistent with the history of right lower lobe resection. A right-sided chest tube is in place. Question a small right basilar pneumothor ax. Airspace opacities and trace pleural fluid are noted on the right. The left lung appears clear. T he skeletal structures are osteopenic. The bony thorax is grossly intact. Subcutaneous emphysema is n oted along the right chest wall. IMPRESSION: 1. Emphysema with postoperative change and volume loss from right lower lobe resection as above. 2. A right-sided chest tube is in place. Suspect a trace right basilar pneumothorax. ACT 112: Negative or not required by law. Electronically signed by: Tyler Coyne M.D. 07/19/2019 11:10 AM
--- NOTE | 2019-07-19 11:51 | Anesthesiology Progress Note ---
Date of Service July 19, 2019 Anesthesia Post Procedure Vital Signs Vital Signs: Temp Pulse Pulse Resp BP Pulse Ox 07/19/19 11:35 95 H 16 115/75 98 07/19/19 11:25 95 H 20 123/66 95 07/19/19 11:15 99 H 25 H 129/80 98 07/19/19 11:05 99 H 24 107/94 99 07/19/19 10:57 36.7 C 90 18 145/97 H 99 07/19/19 05:55 36.5 C 87 18 133/88 95 Pain Intensity Right Chest: Pain Intensity: 9 Transfer of Care Handoff Completed per policy Notes Mental Status: alert / awake / arousable Patient Amnestic to Procedure: Yes Nausea / Vomiting: adequately controlled Pain: adequately controlled Airway Patency, RR, SpO2: stable & adequate BP & HR: stable & adequate Hydration State: stable & adequate Anesthetic Complications: no major complications apparent
[2019-07-19] MEDS ORDERED: ALBUTEROL HFA 8 GM INHALER INH PRN (12:45)
[2019-07-19] MEDS ORDERED: D5W AND 1/2NSS 1,000 ML IV SCH (13:00)
[2019-07-19] MEDS: ACETAMINOPHEN 1,000 MG/100 ML VIAL IV SCH ×2 (14:12→20:42)
[2019-07-19] MEDS: FLUTICASONE FUROATE 100MCG 14 PUFFS/INHALER INH SCH (18:54)
[2019-07-19] MEDS: METOCLOPRAMIDE HCL INJ 5 MG/ML 2 ML VIAL IV SCH (18:54)
[2019-07-19] MEDS: UMECLIDINIUM/VILANTEROL 62.5/25MCG 7 PUFFS/INHALER INH SCH (18:55)
[2019-07-19] MEDS: FAMOTIDINE 20 MG TAB PO SCH (20:36)
[2019-07-19] MEDS: DOCUSATE SODIUM 100 MG CAP PO SCH (20:36)
[2019-07-19] MEDS: PRAMIPEXOLE DIHYDROCHLO 0.5 MG TAB PO SCH (20:36)
[2019-07-19] MEDS ORDERED: PRAMIPEXOLE DIHYDROCHLO 0.5 MG TAB PO ONE (22:29)
[2019-07-20] MEDS: OXYCODONE HCL IR 5 MG TAB (IMMEDIATE RELEASE) PO PRN ×3 (01:03→19:43)
[2019-07-20] MEDS: METOCLOPRAMIDE HCL INJ 5 MG/ML 2 ML VIAL IV SCH (03:56)
[2019-07-20] MEDS: ACETAMINOPHEN 1,000 MG/100 ML VIAL IV SCH (03:56)
[2019-07-20] MEDS: MoRPHine SULFATE 2 MG/ML CARP IV PRN ×2 (04:03→14:25)
[2019-07-20 06:20] LABS: Basophils # (auto) 0.02 K/uL (0-0.2); Basophils % (auto) 0.1 %; Eosinophils # (auto) 0.02 K/uL (0-0.5); Eosinophils % (auto) 0.1 %; Hematocrit (blood only) 43.1 % (37-47); Hemoglobin 14.2 g/dL (12.0-16.0); Immature Granulocytes # (auto) 0.09 K/uL (0.00-0.02); Immature Granulocytes % (auto) 0.4 %; Lymphocytes # (auto) 3.63 K/uL (1.2-3.4); Lymphocytes % (auto) 17.5 %; Mean Corpuscular Hemoglobin 30.3 pg (25-34); Mean Corpuscular Volume 92.1 fL (80-100); Monocytes # (auto) 2.18 K/uL (0.11-0.59); Monocytes % (auto) 10.5 %; Neutrophils # (auto) 14.84 K/uL (1.4-6.5); Neutrophils % (auto) 71.4 %; Platelet Count 435 K/uL (130-400); RDW Coefficient of Variation 12.8 % (11.5-14.5); RDW Standard Deviation 42.9 fL (36.4-46.3); Red Blood Count 4.68 M/uL (4.2-5.4); White Blood Count 20.78 K/uL (4.8-10.8)
[2019-07-20 06:21] LABS: Mean Corpuscular Hgb Conc 32.9 g/dL (32-36)
[2019-07-20 06:36] LABS: BUN Creatinine Ratio 16.2 (10-20); Calcium 9.2 mg/dl (8.5-10.1); Creatinine Clr Calc Pharmacy 67.9 ml/min; Est GFR (African American) 63.8; Est GFR (Non-African American) 55.1; Potassium 4.6 mmol/L (3.5-5.1)
--- NOTE | 2019-07-20 07:44 | XRay Report ---
SINGLE VIEW CHEST CLINICAL HISTORY: Status post right lower lobe resection. FINDINGS: An AP, portable, upright chest radiograph is compared to study dated 07/19/2019 and correlate d with PET/CT dated 06/29/2019. The examination is degraded by portable technique and patient rotation . The cardiomediastinal silhouette is unremarkable. Emphysema and chronic interstitial thickening ar e similar to previous. There is volume loss in the right lung consistent with the history of right lo wer lobe resection. A right-sided chest tube is in place. No definite pneumothorax is identified. Dep endent airspace opacities are again seen at the right lung base. The left lung appears clear. The ske letal structures are osteopenic. The bony thorax is grossly intact. There is increasing subcutaneous emphysema is noted along the right chest wall and in the neck bilaterally. IMPRESSION: 1. Emphysema with postoperative change and volume loss from right lower lobe resection as above. 2. A right-sided chest tube is in place. No definite pneumothorax is identified. 3. Increasing subcutaneous emphysema from previous. ACT 112: Negative or not required by law. Electronically signed by: Tyler Coyne M.D. 07/20/2019 7:43 AM
[2019-07-20] MEDS: SERTRALINE HCL 100 MG TABLET PO SCH (09:30)
[2019-07-20] MEDS: ACETAMINOPHEN 325 MG TAB PO SCH ×3 (09:30→19:44)
[2019-07-20] MEDS: FAMOTIDINE 20 MG TAB PO SCH ×2 (09:31→20:26)
[2019-07-20] MEDS: ROFLUMILAST 500 MCG TAB PO SCH (09:31)
[2019-07-20] MEDS: DOCUSATE SODIUM 100 MG CAP PO SCH ×2 (09:35→20:26)
[2019-07-20] MEDS: METOPROLOL SUCC 50MG EXT REL TAB PO SCH (09:38)
[2019-07-20] MEDS: ENOXAPARIN INJ 40 MG/0.4 ML SYR SQ SCH (09:38)
[2019-07-20] MEDS: lisinopriL 20 MG TAB PO SCH (09:38)
--- NOTE | 2019-07-20 16:33 | Progress Notes ---
DATE: 07/20/2019 Ms. Guerra was seen today 1 day status post a robot-assisted thoracoscopic lobectomy. The patient has done very well. She has a bit more subcutaneous emphysema, but she does not have a pneumothorax and this afternoon she does not have an air leak. She needs a great deal of encouragement to walk and use her incentive spirometry and cough, but quite frankly I am pleased with her. She sounds better this afternoon than she did this morning. I am pleased with her x-ray. She is draining very little from her chest tube. My hope is that we can possibly get her out of the hospital in the next 24-48 hours. I am quite pleased with her progress to this point. Our final path of course is pending.
[2019-07-20] MEDS: UMECLIDINIUM/VILANTEROL 62.5/25MCG 7 PUFFS/INHALER INH SCH (17:36)
[2019-07-20] MEDS: FLUTICASONE FUROATE 100MCG 14 PUFFS/INHALER INH SCH (17:37)
[2019-07-20] MEDS: PRAMIPEXOLE DIHYDROCHLO 0.5 MG TAB PO SCH (20:26)
[2019-07-21] MEDS: ACETAMINOPHEN 325 MG TAB PO SCH ×4 (02:16→21:11)
--- NOTE | 2019-07-21 07:07 | XRay Report ---
XR chest 1V portable CLINICAL HISTORY: 59 years-old Female presenting with lung resection. TECHNIQUE: Portable upright AP view of the chest was obtained. COMPARISON: 07/20/2019. FINDINGS: Large bore right pleural drain remains positioned at the right mid to lower lung periphery. Extensive associated soft tissue emphysema along the right lateral chest wall tracking into the base of the ne ck. Mildly low lung volumes. Cardiac silhouette top normal in size. Underlying prominent lung marking s. Bibasilar opacities similar to prior. No large effusion. Questionable right apical pneumothorax. E valuation limited by image quality. Osseous structures normal. Upper abdomen normal. IMPRESSION: 1. Questionable right apical pneumothorax. Evaluation limited by image quality. 2. Right pleural drain unchanged in position. 3. Extensive soft tissue emphysema. Please ensure appropriate functioning of the pleural drain. 4. Minimal bibasilar atelectasis. ACT 112: Negative or not required by law. Electronically signed by: Glen Miguel M.D. 07/21/2019 7:06 AM
[2019-07-21] MEDS: ROFLUMILAST 500 MCG TAB PO SCH (08:31)
[2019-07-21] MEDS: ENOXAPARIN INJ 40 MG/0.4 ML SYR SQ SCH (08:31)
[2019-07-21] MEDS: FAMOTIDINE 20 MG TAB PO SCH ×2 (08:31→21:11)
[2019-07-21] MEDS: DOCUSATE SODIUM 100 MG CAP PO SCH ×2 (08:31→21:10)
[2019-07-21] MEDS: METOPROLOL SUCC 50MG EXT REL TAB PO SCH (08:32)
[2019-07-21] MEDS: lisinopriL 20 MG TAB PO SCH (08:32)
[2019-07-21] MEDS: SERTRALINE HCL 100 MG TABLET PO SCH (08:32)
--- NOTE | 2019-07-21 09:04 | XRay Report ---
XR chest 1V portable CLINICAL HISTORY: 59 years-old Female presenting with chest tube removal. TECHNIQUE: Portable upright AP view of the chest was obtained. COMPARISON: 07/21/2019 and 6:49 AM. FINDINGS: Interval removal of the right pleural drain. Extensive soft tissue emphysema extending into the anter ior chest wall and base of the neck as on prior exam. This degrades evaluation. Cardiomediastinal ron houette normal. Suture margins noted along the paramediastinal right lung in the infrahilar region an d right lung base. Interval development of a moderate right pneumothorax, which also has a basilar co mponent. Minimal bibasilar linear opacities evident. No pleural effusion. Osseous structures normal. Upper abdomen normal. IMPRESSION: 1. Interval development of a moderate right pneumothorax status post removal of the right pleural dr mathews. 2. Postsurgical changes of the right lung. 3. Persistent extensive soft tissue emphysema. 4. Minimal bibasilar atelectasis. The report will be called/faxed according to standard departmental protocol. ACT 112: Negative or not required by law. Electronically signed by: Glen Miguel M.D. 07/21/2019 9:03 AM
--- NOTE | 2019-07-21 09:26 | Progress Notes ---
DATE: 07/21/2019 Cheryl was seen today. I looked at her x-ray and I am concerned that the chest tube may be coming out, maybe out a bit far. She has subQ emphysema, I really did not see much in the way of a pneumothorax, perhaps a small apical one. I pulled her chest tube out and she did have some air that sucked when we did this. Her x-ray showed a pneumothorax afterwards. However, clinically it seems to be benign. We are going to repeat a film in a couple of hours and keep her on oxygen. I do not think we are going to have to intervene with this. We will see what the other x-ray shows.
--- NOTE | 2019-07-21 12:51 | XRay Report ---
SINGLE VIEW CHEST CLINICAL HISTORY: Status post right lower lobe resection. Right pneumothorax. FINDINGS: An AP, portable, upright chest radiograph is compared to study performed earlier the same d ay 07/21/2019 and correlated with PET/CT dated 06/29/2019. The examination is degraded by portable techn ique and patient rotation. The cardiomediastinal silhouette is unremarkable. Emphysema and chronic i nterstitial thickening are similar to previous. There is volume loss in the right lung consistent wit h the history of right lower lobe resection. A small to moderate right apical pneumothorax has not si gnificantly changed from today's earlier examination. There is at least 3 cm of apical pleural separa tion. There is also a tiny basilar component of the pneumothorax. Dependent airspace opacities are ag ain seen at the right lung base. The left lung appears clear. The skeletal structures are osteopenic. The bony thorax is grossly intact. There is increasing subcutaneous emphysema is noted along the rig ht chest wall and in the neck bilaterally. IMPRESSION: 1. Emphysema with postoperative change and volume loss from right lower lobe resection as above. 2. A small to moderate right apical pneumothorax has not appreciably changed from today's earlier exa mination. 3. Increasing subcutaneous emphysema from previous. ACT 112: Negative or not required by law. Results electronically sent 07/21/2019 12:49 PM to: Bulmaro Echavarria MD FACS Electronically signed by: Tyler Coyne M.D. 07/21/2019 12:49 PM
[2019-07-21] MEDS: AMOXICILLIN/CLAVULANATE 875 MG TAB PO SCH ×2 (14:16→21:11)
--- NOTE | 2019-07-21 16:57 | XRay Report ---
XR chest 1V portable HISTORY: 59 years-old Female right pneumothorax follow up study in a patient with right-sided pneumo thorax COMPARISON: Chest radiograph 07/21/2019 at 11:32 AM. TECHNIQUE: Portable AP view of the chest FINDINGS: Cardiomediastinal and hilar silhouettes are unchanged. Right-sided pneumothorax redemonstrated with p leural separation of the right lung apex of 3.47 m, previously 3.0 cm. Extensive subcutaneous emphyse ma of the chest, greatest on the right has progressed. Edema with weight loss and postoperative santacruz es of the right lung base redemonstrated. Bibasilar densities suggest atelectasis. There is suggestio n of pneumomediastinum. IMPRESSION: 1. Right-sided pneumothorax has slightly increased in size from comparison. 2. Extensive subcutaneous emphysema of the chest has worsened from comparison. 3. Mild pneumomediastinum. 4. Postoperative changes of the right lung. ACT 112: Negative or not required by law. The above report was generated using voice recognition software. It may contain grammatical, syntax o r spelling errors. Results electronically sent 07/21/2019 4:56 PM to: Bulmaro Echavarria MD FACS Electronically signed by: Brayan Gasca M.D. 07/21/2019 4:56 PM
[2019-07-21] MEDS ORDERED: LORazepam 1 MG/2 ML VIAL IV STA (17:17)
[2019-07-21] MEDS: MoRPHine SULFATE 2 MG/ML CARP IV PRN (17:25)
--- NOTE | 2019-07-21 17:51 | XRay Report ---
XR chest 1V portable HISTORY: chest tube COMPARISON: Chest 07/21/2019. FINDINGS: Interval placement of right-sided chest tube which terminates within the right midlung zone . Significant increase in size in a large right pneumothorax. No midline shift. The heart is normal i n size. Pneumomediastinum and extensive subcutaneous emphysema is again noted within the chest. Suggestion of a tiny left apical pneumothorax with a pleural gap of 2 mm. IMPRESSION: 1. Significant increase in size in a large right pneumothorax. A right-sided chest tube terminates in the right midlung zone. 2. Pneumomediastinum and extensive subcutaneous emphysema persists. 3. Suggestion of a tiny left apical pneumothorax. 4. These findings were discussed with Dr. Echavarria at 5:55 PM on 07/21/2019. ACT 112: Negative or not required by law. Results electronically sent 07/21/2019 6:31 PM to: Bulmaro Echavarria MD FACS Electronically signed by: Sharan Wu M.D. 07/21/2019 6:31 PM
[2019-07-21] MEDS: UMECLIDINIUM/VILANTEROL 62.5/25MCG 7 PUFFS/INHALER INH SCH (18:38)
[2019-07-21] MEDS: FLUTICASONE FUROATE 100MCG 14 PUFFS/INHALER INH SCH (18:38)
[2019-07-21] MEDS: PRAMIPEXOLE DIHYDROCHLO 0.5 MG TAB PO SCH (21:11)
--- NOTE | 2019-07-21 21:11 | Operative Report (OR) ---
DATE OF OPERATION: 07/21/2019 SPECIFICS OF PROCEDURE: Ms. Guerra was seen this morning, and her chest tube did not appear to be functioning. I was afraid because of her large size that by suturing into the patient's skin with her in a decubitus position may have pulled back and this may have been causing her subcutaneous emphysema. At any rate, she was getting increasing subcutaneous emphysema, so I removed it. She had a pneumothorax so I checked the film and it really did not change much, but clinically her subcutaneous emphysema was increasing. I discussed this at the patient's daughter who is a nurse down on the progressive care unit and we elected to proceed with insertion of a chest tube. After appropriate consent had been obtained, the patient's right chest was prepped and draped in usual sterile fashion below her right clavicle and her superior breast area. A timeout was called. A 25-gauge needle and 1% Xylocaine without epinephrine was used to anesthetize skin and subcutaneous tissues. A 25-gauge needle and a larger needle was used to go down almost straight down given her large size. I then anesthetized this with a large needle and was able to go above a rib and got air back. A soft J-tipped guidewire was inserted without difficulty and the needle removed. This was gently dilated and then a 20-Wolof chest tube was placed and directed almost directly posterior. There was a ta of air and the patient immediately felt better. This was sutured in place at about [address] with heavier silk suture. This was attached to Pleur-Evac. There is some air initially, but then good fluctuation, but no air after that. Acticoat was placed around this and this was dressed. A chest x-ray showed it going posteriorly, but the pneumothorax was resolved. She tolerated it well. I attest to the content of the Intraoperative Record and any orders documented therein. Any exceptions are noted below. MTDD
[2019-07-22] MEDS: MoRPHine SULFATE 2 MG/ML CARP IV PRN (00:05)
[2019-07-22] MEDS: ACETAMINOPHEN 325 MG TAB PO SCH ×4 (03:04→21:08)
[2019-07-22] MEDS: METOPROLOL SUCC 50MG EXT REL TAB PO SCH (07:48)
[2019-07-22] MEDS: DOCUSATE SODIUM 100 MG CAP PO SCH ×2 (07:48→21:08)
[2019-07-22] MEDS: FAMOTIDINE 20 MG TAB PO SCH ×2 (07:48→21:08)
[2019-07-22] MEDS: SERTRALINE HCL 100 MG TABLET PO SCH (07:48)
[2019-07-22] MEDS: lisinopriL 20 MG TAB PO SCH (07:48)
[2019-07-22] MEDS: ROFLUMILAST 500 MCG TAB PO SCH (07:48)
[2019-07-22] MEDS: AMOXICILLIN/CLAVULANATE 875 MG TAB PO SCH ×2 (07:49→17:13)
[2019-07-22] MEDS: ENOXAPARIN INJ 40 MG/0.4 ML SYR SQ SCH (07:49)
[2019-07-22 08:05] LABS: Creatinine Clr Calc Pharmacy 100.6 ml/min; Est GFR (African American) 102.6; Est GFR (Non-African American) 88.5
--- NOTE | 2019-07-22 08:22 | XRay Report ---
XR chest 1V portable CLINICAL HISTORY: lobectomy COMPARISON STUDY: Chest radiograph July 21, 2019 at 5:39 PM. FINDINGS: Right chest tube is in place. A small right apical pneumothorax is noted with superior pleu ral separation of 1.3 cm. A trace left apical pneumothorax is noted with superior pleural separation of 6 mm. Extensive subcutaneous gas within the chest and neck has increased. Pneumomediastinum has in creased. Right basilar opacity has increased. Cardiac size is stable. IMPRESSION: 1. Small right and trace left pneumothoraces. Right chest tube in place. 2. Increase in pneumomediastinum and extensive subcutaneous gas within the neck and chest wall. 3. Increase in right basilar opacity. ACT 112: Negative or not required by law. Results electronically sent 07/22/2019 8:21 AM to: Bulmaro Echavarria MD FACS Electronically signed by: Angelo Tang M.D. 07/22/2019 8:21 AM
[2019-07-22] MEDS: FLUTICASONE FUROATE 100MCG 14 PUFFS/INHALER INH SCH (17:14)
[2019-07-22] MEDS: UMECLIDINIUM/VILANTEROL 62.5/25MCG 7 PUFFS/INHALER INH SCH (17:14)
[2019-07-22] MEDS: OXYCODONE HCL IR 5 MG TAB (IMMEDIATE RELEASE) PO PRN (21:08)
[2019-07-22] MEDS: PRAMIPEXOLE DIHYDROCHLO 0.5 MG TAB PO SCH (21:08)
[2019-07-23] MEDS: ACETAMINOPHEN 325 MG TAB PO SCH ×4 (01:31→19:55)
[2019-07-23] MEDS: AMOXICILLIN/CLAVULANATE 875 MG TAB PO SCH ×2 (07:48→17:43)
[2019-07-23] MEDS: lisinopriL 20 MG TAB PO SCH (08:46)
[2019-07-23] MEDS: METOPROLOL SUCC 50MG EXT REL TAB PO SCH (08:46)
[2019-07-23] MEDS: FAMOTIDINE 20 MG TAB PO SCH ×2 (08:46→19:56)
[2019-07-23] MEDS: ROFLUMILAST 500 MCG TAB PO SCH (08:46)
[2019-07-23] MEDS: ENOXAPARIN INJ 40 MG/0.4 ML SYR SQ SCH (08:46)
[2019-07-23] MEDS: DOCUSATE SODIUM 100 MG CAP PO SCH ×2 (08:46→19:56)
[2019-07-23] MEDS: SERTRALINE HCL 100 MG TABLET PO SCH (08:46)
--- NOTE | 2019-07-23 09:55 | Surgery Progress Note ---
Date of Service July 23, 2019 Assessment & Plan (1) Mass of right lung: POD#4 right lower lobectomy and Day#2 s/p chest tube replacement appears to be doing well, remains on supplemental O2 she believe her subcutaneous emphsyema is improving chest tube without airleak, will place to waterseal this AM will obtain CXR today encourage ongoing pulmonary toilet and frequent ambulation pt seen and examined with Dr. Mercado Subjective Patient sitting up in chair eating breakfast. Says she feels good. No SOB at rest, but some with walking. Thinks her swelling has improved. Physical Exam 2 Physical Exam: awake/alert, sitting up in chair. subq emphysema noted Constitutional: well developed and well nourished; no acute distress Respiratory: wearing oxymask Chest (Breasts): Additional Comments: + chest tube, no airleak noted Results & Data Vital Signs (Past 12 Hours) Vital Signs Temp Pulse Pulse Resp BP Pulse Ox Pulse Ox 07/23/19 07:25 36.3 C L 102 H 18 126/84 97 07/23/19 06:17 96 07/23/19 04:00 90 07/23/19 03:30 36.5 C 102 H 22 133/88 94 07/23/19 00:28 94 07/22/19 23:15 36.6 C 106 H 20 105/68 92 PG Care Time/CCT Total # of Minutes Spent Total Time Spent with Patient: Total time spent is greater than 50% in coordination of care (as documented) at patient's floor/unit and/or counseling patient: Coding Level of Care Code None Diagnoses Mass of right lung R91.8
--- NOTE | 2019-07-23 10:13 | XRay Report ---
XR chest 1V portable CLINICAL HISTORY: 59 years-old Female presenting with pod4 RLL. TECHNIQUE: Portable upright AP view of the chest was obtained. COMPARISON: 07/22/2019. FINDINGS: Large bore right pleural drain remains position at the periphery of the right midlung. Severe extensi ve soft tissue emphysema throughout the bilateral chest olmos and into the neck. The degree of anteri or chest wall emphysema limits evaluation. Extensive pneumomediastinum is also noted. Minimal bandlik e opacities at the right lung base. Limited assessment for pneumothoraces, which are not grossly appa rent. No large pleural effusion. IMPRESSION: 1. Limited evaluation given the severity of soft tissue emphysema which is diffusely affecting the c hest wall and neck. Correlate with proper functioning of the right pleural drain. 2. Pneumomediastinum as on prior exam. 3. No convincing evidence of pneumothoraces allowing for the limited evaluation. 4. Right basilar atelectasis. ACT 112: Negative or not required by law. Electronically signed by: Glen Miguel M.D. 07/23/2019 10:12 AM
[2019-07-23] MEDS: FLUTICASONE FUROATE 100MCG 14 PUFFS/INHALER INH SCH (17:44)
[2019-07-23] MEDS: UMECLIDINIUM/VILANTEROL 62.5/25MCG 7 PUFFS/INHALER INH SCH (17:44)
[2019-07-23] MEDS: PRAMIPEXOLE DIHYDROCHLO 0.5 MG TAB PO SCH (19:55)
[2019-07-23] MEDS: OXYCODONE HCL IR 5 MG TAB (IMMEDIATE RELEASE) PO PRN (21:55)
[2019-07-24] MEDS: ACETAMINOPHEN 325 MG TAB PO SCH ×4 (04:08→19:35)
[2019-07-24] MEDS: lisinopriL 20 MG TAB PO SCH (07:48)
[2019-07-24] MEDS: FAMOTIDINE 20 MG TAB PO SCH ×2 (07:48→22:11)
[2019-07-24] MEDS: DOCUSATE SODIUM 100 MG CAP PO SCH ×2 (07:48→22:11)
[2019-07-24] MEDS: ROFLUMILAST 500 MCG TAB PO SCH (07:49)
[2019-07-24] MEDS: AMOXICILLIN/CLAVULANATE 875 MG TAB PO SCH ×2 (07:49→17:04)
[2019-07-24] MEDS: METOPROLOL SUCC 50MG EXT REL TAB PO SCH (07:49)
[2019-07-24] MEDS: ENOXAPARIN INJ 40 MG/0.4 ML SYR SQ SCH (07:50)
[2019-07-24] MEDS: SERTRALINE HCL 100 MG TABLET PO SCH (07:50)
--- NOTE | 2019-07-24 07:59 | XRay Report ---
XR chest 1V portable HISTORY: Follow-up pneumothorax. COMPARISON: Chest 07/23/2019. FINDINGS: Right-sided chest tube remains unchanged in position. Suspect a small right apical pneumoth orax. Extensive chest wall subcutaneous emphysema and pneumomediastinum persists. The heart is normal in size. There are patchy bibasilar densities. IMPRESSION: 1. The right-sided chest tube remains unchanged in position. 2. No change in extensive subcutaneous emphysema and pneumomediastinum. 3. Suspect a small right apical pneumothorax. ACT 112: Negative or not required by law. Electronically signed by: Sharan Wu M.D. 07/24/2019 7:58 AM
--- NOTE | 2019-07-24 08:49 | Surgery Progress Note ---
Date of Service July 24, 2019 Assessment & Plan (1) Mass of right lung: POD#5 right lower lobectomy and Day#3 s/p chest tube replacement CXR stable on water seal past 24 hours less subQ emphysema will leave chest tube for today seen with Dr. Mercado Subjective sitting in chair, no complaints, less "swelling" Physical Exam Respiratory: no air leak, minimal drainage Results & Data Vital Signs (Past 12 Hours) Vital Signs Temp Pulse Pulse Resp BP Pulse Ox Pulse Ox 07/24/19 07:18 37 C 96 H 20 139/80 92 07/24/19 06:36 90 07/24/19 06:30 88 L 07/24/19 03:58 107 H 92 07/24/19 01:50 93 07/24/19 01:41 96 07/23/19 23:22 95 07/23/19 23:10 36.5 C 112 H 20 120/76 93 PG Care Time/CCT Total # of Minutes Spent Total Time Spent with Patient: Total time spent is greater than 50% in coordination of care (as documented) at patient's floor/unit and/or counseling patient: Coding Level of Care Code None Diagnoses Mass of right lung R91.8
[2019-07-24 11:46] LABS: Basophils # (auto) 0.02 K/uL (0-0.2); Basophils % (auto) 0.1 %; Eosinophils # (auto) 0.25 K/uL (0-0.5); Eosinophils % (auto) 1.8 %; Hematocrit (blood only) 37.6 % (37-47); Immature Granulocytes # (auto) 0.13 K/uL (0.00-0.02); Lymphocytes # (auto) 2.81 K/uL (1.2-3.4); Lymphocytes % (auto) 20.6 %; Mean Corpuscular Hgb Conc 31.9 g/dL (32-36); Mean Corpuscular Volume 90.8 fL (80-100); Mean Platelet Volume 8.9 fL (7.4-10.4); Monocytes % (auto) 8.1 %; Neutrophils # (auto) 9.33 K/uL (1.4-6.5); Neutrophils % (auto) 68.4 %; Platelet Count 441 K/uL (130-400); RDW Coefficient of Variation 12.8 % (11.5-14.5); RDW Standard Deviation 42.3 fL (36.4-46.3); Red Blood Count 4.14 M/uL (4.2-5.4); White Blood Count 13.64 K/uL (4.8-10.8)
[2019-07-24 12:03] LABS: BUN Creatinine Ratio 29.8 (10-20); Calcium 8.7 mg/dl (8.5-10.1); Creatinine Clr Calc Pharmacy 127.8 ml/min; Est GFR (African American) 117.9; Est GFR (Non-African American) 101.7; Potassium 3.9 mmol/L (3.5-5.1)
[2019-07-24] MEDS ORDERED: Nursing to Pharmacy Communication ONE (18:28)
[2019-07-24] MEDS: UMECLIDINIUM/VILANTEROL 62.5/25MCG 7 PUFFS/INHALER INH SCH (18:35)
[2019-07-24] MEDS: FLUTICASONE FUROATE 100MCG 14 PUFFS/INHALER INH SCH (18:36)
[2019-07-24] MEDS: HYDROCORTISONE HC 2.5% CRM 30GM TUBE EXT PRN (19:36)
[2019-07-24] MEDS: PRAMIPEXOLE DIHYDROCHLO 0.5 MG TAB PO SCH (22:11)
[2019-07-25] MEDS: ACETAMINOPHEN 325 MG TAB PO SCH ×4 (02:20→21:31)
[2019-07-25] MEDS: HYDROCORTISONE HC 2.5% CRM 30GM TUBE EXT PRN (02:20)
[2019-07-25 06:01] LABS: Creatinine Clr Calc Pharmacy 117.8 ml/min; Est GFR (African American) 114.8; Est GFR (Non-African American) 99.1
--- NOTE | 2019-07-25 07:20 | XRay Report ---
XR chest 1V portable CLINICAL HISTORY: 59 years-old Female presenting with chest tube. TECHNIQUE: Portable upright AP view of the chest was obtained. COMPARISON: 07/24/2019. FINDINGS: Large bore right pleural drain remains position at the periphery of the right lung. Severe extensive soft tissue emphysema along the lateral and anterior chest wall bilaterally and extending extensively into the neck. Associated pneumomediastinum slightly less apparent. Minimal basilar opacities. Trace right apical pneumothorax is evident. No large pleural effusion. Degenerative changes of the thoraci c spine. Upper abdomen normal. IMPRESSION: 1. Trace right apical pneumothorax with the right pleural drain in place. 2. Severe soft tissue emphysema. 3. Slight decreased prominence of pneumomediastinum. ACT 112: Negative or not required by law. Electronically signed by: Glen Miguel M.D. 07/25/2019 7:19 AM
[2019-07-25] MEDS: FAMOTIDINE 20 MG TAB PO SCH ×2 (08:31→21:32)
[2019-07-25] MEDS: DOCUSATE SODIUM 100 MG CAP PO SCH ×2 (08:31→21:33)
[2019-07-25] MEDS: METOPROLOL SUCC 50MG EXT REL TAB PO SCH (08:31)
[2019-07-25] MEDS: SERTRALINE HCL 100 MG TABLET PO SCH (08:32)
[2019-07-25] MEDS: AMOXICILLIN/CLAVULANATE 875 MG TAB PO SCH ×2 (08:32→17:20)
[2019-07-25] MEDS: ROFLUMILAST 500 MCG TAB PO SCH (08:32)
[2019-07-25] MEDS: lisinopriL 20 MG TAB PO SCH (08:32)
[2019-07-25] MEDS: ENOXAPARIN INJ 40 MG/0.4 ML SYR SQ SCH (08:32)
--- NOTE | 2019-07-25 12:13 | Surgery Progress Note ---
Date of Service July 25, 2019 Assessment & Plan (1) Mass of right lung: POD#6 right lower lobectomy and Day#4 s/p chest tube replacement CXR stable on water seal past 48 hrs subQ emphysema resolving will leave chest tube for today will check U/S LE lasix 20 mg BP/HR were elevated this AM but improved now seen with Dr. Mercado Subjective no c/o Physical Exam Respiratory: chest tube drainage 10 cc, not fluctuating Cardiovascular: Extremities: + edema (right calf slightly larger than left); no calf tenderness Results & Data Vital Signs (Past 12 Hours) Vital Signs Temp Pulse Resp BP BP Pulse Ox Pulse Ox 07/25/19 11:36 36.5 C 88 22 140/82 93 07/25/19 10:15 92 07/25/19 08:19 93 07/25/19 07:48 36.6 C 108 H 20 150/90 H 93 PG Care Time/CCT Total # of Minutes Spent Total Time Spent with Patient: Total time spent is greater than 50% in coordination of care (as documented) at patient's floor/unit and/or counseling patient: Coding Level of Care Code None Diagnoses Mass of right lung R91.8
[2019-07-25] MEDS ORDERED: FUROSEMIDE 20 MG in SYRINGE 0 ML IV ONE (12:30)
--- NOTE | 2019-07-25 16:06 | Ultrasound Report ---
ULTRASOUND RIGHT LOWER EXTREMITY VENOUS CLINICAL HISTORY: Right lower extremity edema. COMPARISON STUDY: No priors. TECHNIQUE: Real-time, grayscale, and color Doppler sonography of the deep veins of the right lower ex tremity was performed from the inguinal crease to the calf. Compression and augmentation were utilize d. FINDINGS: There is no sonographic evidence of deep venous thrombosis identified in the right lower ex tremity. The common femoral, superficial femoral, and popliteal veins are patent and normally edwardo sible. The greater saphenous vein and the profunda femoris vein at the junction with the common femor al vein are clear. The visualized calf veins are patent. IMPRESSION: There is no sonographic evidence of deep venous thrombosis identified in the right lower extremity. ACT 112: Negative or not required by law. Electronically signed by: Tyler Coyne M.D. 07/25/2019 4:05 PM
[2019-07-25] MEDS: UMECLIDINIUM/VILANTEROL 62.5/25MCG 7 PUFFS/INHALER INH SCH (17:19)
[2019-07-25] MEDS: FLUTICASONE FUROATE 100MCG 14 PUFFS/INHALER INH SCH (17:19)
[2019-07-25] MEDS: PRAMIPEXOLE DIHYDROCHLO 0.5 MG TAB PO SCH (21:33)
[2019-07-26] MEDS: ACETAMINOPHEN 325 MG TAB PO SCH ×2 (03:19→08:28)
--- NOTE | 2019-07-26 07:33 | XRay Report ---
SINGLE VIEW CHEST CLINICAL HISTORY: Status post right lower lobe resection. Right pneumothorax. FINDINGS: An AP, portable, upright chest radiograph is compared to study performed dictated 07/25/2019 and correlated with PET/CT dated 06/29/2019. The examination is degraded by portable technique and pat ient rotation. The cardiomediastinal silhouette is unremarkable. Emphysema and chronic interstitial thickening are similar to previous. There is volume loss in the right lung consistent with the histor y of right lower lobe resection. A right-sided chest tube is in place. A small residual right apical pneumothorax has not significantly changed from yesterday. Pleural fluid and dependent airspace opaci ties are again seen at the right lung base. The left lung appears clear noting basilar atelectasis. T he skeletal structures are osteopenic. The bony thorax is grossly intact. Extensive subcutaneous emph ysema is again seen throughout the chest wall and in the lower neck. IMPRESSION: 1. Emphysema with postoperative change and volume loss from right lower lobe resection as above. 2. The right-sided chest tube is in place. A small residual right apical pneumothorax is unchanged fr om yesterday. 3. Dependent airspace opacities and pleural fluid is seen at the right lung base. ACT 112: Negative or not required by law. Electronically signed by: Tyler Coyne M.D. 07/26/2019 7:32 AM
[2019-07-26] MEDS: AMOXICILLIN/CLAVULANATE 875 MG TAB PO SCH (08:27)
[2019-07-26] MEDS: lisinopriL 20 MG TAB PO SCH (08:28)
[2019-07-26] MEDS: SERTRALINE HCL 100 MG TABLET PO SCH (08:28)
[2019-07-26] MEDS: FAMOTIDINE 20 MG TAB PO SCH (08:28)
[2019-07-26] MEDS: METOPROLOL SUCC 50MG EXT REL TAB PO SCH (08:28)
[2019-07-26] MEDS: ROFLUMILAST 500 MCG TAB PO SCH (08:28)
[2019-07-26] MEDS: DOCUSATE SODIUM 100 MG CAP PO SCH (08:29)
[2019-07-26] MEDS: ENOXAPARIN INJ 40 MG/0.4 ML SYR SQ SCH (08:29)
--- NOTE | 2019-07-26 10:22 | Surgery Progress Note ---
Date of Service July 26, 2019 Assessment & Plan (1) Adenocarcinoma, lung: POD#7 right lower lobectomy and Day#5 s/p chest tube replacement CXR stable CT to Heimlich valve, home later today with tube to be removed next week in clinic seen with Dr. Mercado Subjective no c/o Physical Exam Respiratory: CT minimal drainage, no air leak Results & Data Vital Signs (Past 12 Hours) Vital Signs Temp Pulse Resp BP Pulse Ox 07/26/19 07:45 36.8 C 107 H 22 158/92 H 91 07/25/19 23:10 36.5 C 102 H 16 133/84 92 PG Care Time/CCT Total # of Minutes Spent Total Time Spent with Patient: Total time spent is greater than 50% in coordination of care (as documented) at patient's floor/unit and/or counseling patient: Coding Level of Care Code None Diagnoses Adenocarcinoma, lung C34.90
--- NOTE | 2019-08-01 11:57 | Discharge Summary (DS) ---
DISCHARGE DIAGNOSES: 1. Nonsmall cell lung carcinoma, right lower lobe. 2. Postoperative air leak resulting in reinsertion of an anterior right chest tube on postoperative day 2. 3. Obesity. 4. History of cigarette smoking. HOSPITAL COURSE: This is a very nice 59-year-old female who is obese. She was found to have a mass in the right lower lobe and a needle biopsy was performed which showed this to be an adenocarcinoma. The rest of her studies showed no evidence of metastatic disease. For this reason, I took her to the operating room even though she was a fairly high risk because of her lung function. On 07/19/2019 the patient underwent an uncomplicated robot-assisted thoracoscopic right lower lobectomy with a mediastinal lymphadenectomy. Initially the patient did quite good. I did not see an air leak; however, on postoperative day 2, she began having subcutaneous emphysema and her chest tube was not working despite manipulation. For this reason, I decided to pull the tube out. She had a small pneumothorax on the right. It was my hope that this would simply resolve, but it did not. The following day, she was worse and so I inserted a chest tube on 07/21/2019. The final diagnosis of this patient was an invasive adenocarcinoma. Eighteen lymph nodes were negative for spread of disease. She is a stage I adenocarcinoma. Four days after I inserted a second chest tube the patient was discharged home with a Heimlich valve in place. Her incisions were clean. She was short of breath, but not requiring oxygen. I will see her back in the office next week. Her daughter is a nurse here at [facility]. I discussed this case in detail with her daughter on a regular basis. I will see her back in the office next week.
== END 2019-07-26 12:40 | disposition home or self-care (01) | DRG 164 ==
LOC: ASU 05:19 → 3N 10:44